=== PATIENT | female | born 1955 | race Caucasian/White ===

== ENCOUNTER 2016-10-07 12:56 | Observation (INO) | payer BC ==
--- NOTE | 2016-10-07 13:04 | DR.GENAD ---
HPI - Complaint/Symptoms Chief Complaint Doctors Comments: Patient presents with complaint of chest pain radiating to her back. She denies a history of cardiac disease. PMH - PMH Past Medical History: Hypertension, Hypothyroidism Past Surgical History: Yes Surgical History: - Family History Family Medical History: Diabetes Mellitus, Hypertension - Social History Do you use any recreational Drugs:: No ROS - Review of Systems Eyes: No Symptoms Reported ENTM: No Symptoms Reported Respiratoy: No Symptoms Reported Cardiovascular: Chest Pain (radiating to back) Genitourinary: No Symptoms Reported Neurological: No Symptoms Reported Musculoskeletal: No Symptoms Reported Integumentary: No Symptoms Reported Hematologic/Lymphatic: No Symptoms Reported Endocrine: No Symptoms Reported Psychiatric: No Symptoms Reported All Other Systems: Reviewed and Negative PE - Vital Signs Vitals: Temperature 97.2 F Pulse Rate [Right Brachial] 75 Pulse Rate 82 Respiratory Rate 20 Blood Pressure [Right Arm] 130/32 Blood Pressure [Left Arm] 109/55 Blood Pressure 120/68 O2 Sat by Pulse Oximetry 100 - General Limitations: No Limitations General Appearance: Alert, In No Apparent Distress, Anxious - Head Head Exam: Normal Inspection, Atraumatic - Eyes Eye exam: Normal Appearance, PERRL, EOMI - ENT ENT Exam: Normal Exam External Ear Exam: Normal External Inspection TM/Canal Exam: Bilateral Normal Nose Exam: Normal Nose Exam Mouth Exam: Normal Inspection Throat Exam: Normal Inspection - Neck Neck Exam: Normal Inspection, Full ROM - Chest Chest Inspection: Normal Inspection - Respiratory Respiratory Exam: Normal Lung Sounds Bilat Respiratory Exam: Bilateral Clear to Auscultation - Cardiovascular Cardiovascular Exam: Regular Rate, Normal Rhythm - Abdominal Exam Abdominal Exam: Normal Inspection, Normal Bowel Sounds Abdominal Tenderness: negative: RUQ, RLQ, LUQ, LLQ, Epigastrium, Suprapubic, Diffuse, Mild, Moderate, Severe, Other - Extremities Extremities Exam: Normal Inspection, Full ROM - Back Back Exam: Normal Inspection, Full ROM - Neurologic Neurological Exam: Alert, Oriented X3, CN II-XII Intact - Psychiatric Psychiatric Exam: Normal Affect - Skin Skin Exam: Warm, Dry, Intact Course - Reevaluation 1st: Improved ROR - Labs Reviewed Result Diagrams: 10/07/16 13:05 10/07/16 13:05 Laboratory: WBC 5.1 X10^3/uL (3.6-10.0) 10/07/16 13:05 RBC 4.02 X10^6/uL (3.5-5.4) 10/07/16 13:05 Hgb 12.1 g/dL (12.0-16.0) 10/07/16 13:05 Hct 34.9 % (36.0-47.0) L 10/07/16 13:05 MCV 86.8 fL (80.0-100.0) 10/07/16 13:05 MCH 30.0 pg (27.0-34.0) 10/07/16 13:05 MCHC 34.6 g/dL (33.0-35.0) 10/07/16 13:05 RDW 13.3 % (11.6-16.5) 10/07/16 13:05 Plt Count 322 X10^3/uL (150.0-450.0) 10/07/16 13:05 MPV 6.8 fL (7.4-11.0) L 10/07/16 13:05 Neut % 41.3 % (42.0-75.0) L 10/07/16 13:05 Lymph % 45.2 % (21.0-51.0) 10/07/16 13:05 [place] % 10.1 % (0.0-13.0) 10/07/16 13:05 Eos % 2.5 % (0.9-2.9) 10/07/16 13:05 Baso % 0.9 % (0.2-1.0) 10/07/16 13:05 Neut # 2.1 x10^3/uL (2.2-4.8) L 10/07/16 13:05 Lymph # 2.3 X10^3/uL (1.3-2.9) 10/07/16 13:05 [place] # 0.5 x10^3/uL (0.3-0.8) 10/07/16 13:05 Eos # 0.1 x10^3/uL (0.0-0.2) 10/07/16 13:05 Baso # 0.0 X10^3/uL (0.0-0.1) 10/07/16 13:05 Absolute Nucleated RBC 0.0 /100WBC 10/07/16 13:05 D-Dimer 439 ng/mL (0-400) H* 10/07/16 13:05 Sample Site Rba 10/07/16 13:20 ABG pH 7.390 (7.35-7.45) 10/07/16 13:20 ABG pCO2 44.0 mmHg (35.0-45.0) 10/07/16 13:20 ABG pO2 85.0 mmHg (80.0-100.0) 10/07/16 13:20 ABG HCO3 26.6 mmol/L (22-26) H 10/07/16 13:20 ABG O2 Saturation 96.0 % (90-100) 10/07/16 13:20 ABG Base Excess 1.3 mmol/L (-2.0-2.0) 10/07/16 13:20 Fermín Test Na 10/07/16 13:20 A-a Gradient 10.0 mmHg 10/07/16 13:20 FiO2 21.000 10/07/16 13:20 Blood Gas Comments Edilberto well cs 10/07/16 13:20 Sodium 141 mmol/L (136-145) 10/07/16 13:05 Corrected Sodium 142 mmol/L (136-145) 10/07/16 13:05 Potassium 4.0 mmol/L (3.5-5.1) 10/07/16 13:05 Chloride 106 mmol/L (98-107) 10/07/16 13:05 Carbon Dioxide 28.3 mmol/L (21-32) 10/07/16 13:05 BUN 20 mg/dL (7-18) H 10/07/16 13:05 Creatinine 1.20 mg/dL (0.55-1.02) H 10/07/16 13:05 Est GFR (MDRD) Af Amer 59 (>60) 10/07/16 13:05 Est GFR (MDRD) Non-Af 49 (>60) L 10/07/16 13:05 Glucose 123 mg/dL (65-99) H 10/07/16 13:05 Calcium 8.8 mg/dL (8.5-10.1) 10/07/16 13:05 Corrected Calcium TNP 10/07/16 13:05 Phosphorus 3.9 mg/dL (2.6-4.7) 10/07/16 13:05 Magnesium 1.8 mg/dL (1.7-2.9) 10/07/16 13:05 Total Bilirubin 0.40 mg/dL (0.2-1.0) 10/07/16 13:05 AST 22 Units/L (15-37) 10/07/16 13:05 ALT 30 Units/L (12-78) 10/07/16 13:05 Alkaline Phosphatase 89 Units/L (46-116) 10/07/16 13:05 Creatine Kinase 92 Units/L (26-192) 10/07/16 13:05 CK-MB (CK-2) 1.3 ng/mL (0-4.0) 10/07/16 13:05 CK/CKMB % Calc 1.4 % (<4) 10/07/16 13:05 Troponin I < 0.02 ng/mL (0-1.5) 10/07/16 13:05 Total Protein 7.4 g/dL (6.4-8.2) 10/07/16 13:05 Albumin 3.4 g/dL (3.4-5.0) 10/07/16 13:05 Globulin 4.0 g/dL (2.5-4.5) 10/07/16 13:05 Albumin/Globulin Ratio 0.9 Ratio (1.1-2.1) L 10/07/16 13:05 Lipase 146 Units/L (73-393) 10/07/16 13:05 - XRAY XRAY Interpreted by: Radiologist (Chest: A stable large hiatal hernis is seen superimposed on the cardiac shilhouette. No pneumothorax or pleural effusion is noted. No pulmonary opacity is noted. There is a mild thoracidc scoliosis seen convex to the left. Degenerative changes are noted in the spine. No acute osseous abnormality is noted. Impression:Hypoventilated lungs, Stable large hiatal hernia.) - EKG Compared to prior EKG Dated: 04/06/16 (old inferior infarct noted) [place]: Normal Rhythm: NSR Block: None Hypertrophy: LAE - Diagnosis Discharge Problem: Hiatal hernia Chest pain Qualifiers: Chest pain type: unspecified Qualified Code(s): R07.9 - Chest pain, unspecified Osteoarthritis of thoracic spine Qualifiers: Spinal osteoarthritis complication: without myelopathy or radiculopathy Qualified Code(s): M47.814 - Spondylosis without myelopathy or radiculopathy, thoracic region - Discharge Plan Condition: Stable - Follow ups/Referrals Follow ups/Referrals: NFD,None [Primary Care Provider] - 3 days - Instructions
[2016-10-07 13:06] VITALS: BMI 41.9
[2016-10-07] MEDS: NS 1000 ML 1,000 ML IV SCH ×2 (13:15→21:02)
[2016-10-07 13:25] LABS: BASOPHILS % (AUTO) 0.9 % (0.2-1.0); EOSINOPHILS # (AUTO) 0.1 x10^3/uL (0.0-0.2); EOSINOPHILS % (AUTO) 2.5 % (0.9-2.9); HEMATOCRIT 34.9 % (36.0-47.0); HEMOGLOBIN 12.1 g/dL (12.0-16.0); LYMPHOCYTES # (AUTO) 2.3 X10^3/uL (1.3-2.9); LYMPHOCYTES % (AUTO) 45.2 % (21.0-51.0); MEAN CORPUSCULAR HGB CONC 34.6 g/dL (33.0-35.0); MEAN CORPUSCULAR VOLUME 86.8 fL (80.0-100.0); MEAN PLATELET VOLUME 6.8 fL (7.4-11.0); MONOCYTES # (AUTO) 0.5 x10^3/uL (0.3-0.8); MONOCYTES % (AUTO) 10.1 % (0.0-13.0); NEUTROPHILS # (AUTO) 2.1 x10^3/uL (2.2-4.8); NEUTROPHILS % (AUTO) 41.3 % (42.0-75.0); PLATELET COUNT 322 X10^3/uL (150.0-450.0); RED BLOOD COUNT 4.02 X10^6/uL (3.5-5.4); RED CELL DISTRIBUTION WIDTH 13.3 % (11.6-16.5); WHITE BLOOD COUNT 5.1 X10^3/uL (3.6-10.0)
[2016-10-07 13:29] LABS: ABG BASE EXCESS 1.3 mmol/L (-2.0-2.0); ABG HCO3 26.6 mmol/L (22-26)
[2016-10-07 13:38] LABS: BLOOD UREA NITROGEN 20 mg/dL (7-18); CALCIUM 8.8 mg/dL (8.5-10.1); CARBON DIOXIDE 28.3 mmol/L (21-32); CHLORIDE 106 mmol/L (98-107); COR NA(FOR HYPERGLY) 142 mmol/L (136-145); GLUCOSE 123 mg/dL (65-99); SODIUM 141 mmol/L (136-145); TROPONIN I < 0.02 ng/mL (0-1.5); eGFR BLACK RACES 59 (>60); eGFR NON BLACK RACES 49 (>60)
--- NOTE | 2016-10-07 13:39 | RAD ---
Examination: Chest x-ray. Clinical History: Chest pain. Technique: A single portable AP view of the chest was obtained. Comparison: 04/06/2016. Findings: The lungs are hypoventilated, precluding evaluation of the heart size. A stable large hiatal hernia is seen superimposed on the cardiac silhouette. No pneumothorax or pleural effusion is noted. No pulmonary opacity is noted. There is a mild thoracic scoliosis seen convex to the left. Degenerative changes are noted in the sp ine. No acute osseous abnormality is noted. Monitor leads are seen overlying the chest. Impression: 1. Hypoventilated lungs. 2. Stable large hiatal hernia. Reported By:
[2016-10-07 13:42] LABS: ALANINE AMINOTRANSFERASE 30 Units/L (12-78); ALBUMIN 3.4 g/dL (3.4-5.0); ALKALINE PHOSPHATASE 89 Units/L (46-116); ASPARTATE AMINO TRANSFERASE 22 Units/L (15-37); CKMB % 1.4 % (<4); CREATINE KINASE 92 Units/L (26-192); CREATINE KINASE MB 1.3 ng/mL (0-4.0); LIPASE 146 Units/L (73-393); MAGNESIUM 1.8 mg/dL (1.7-2.9); PHOSPHORUS 3.9 mg/dL (2.6-4.7); TOTAL PROTEIN 7.4 g/dL (6.4-8.2)
[2016-10-07 13:48] LABS: D DIMER 439 ng/mL (0-400)
[2016-10-07] MEDS ORDERED: ZOFRAN INJ 4 MG VIAL IVP PRN (14:35)
[2016-10-07] MEDS ORDERED: TYLENOL 325 MG TAB PO PRN (14:36)
[2016-10-07 15:28] LABS: CKMB % 0.8 % (<4); CREATINE KINASE 197 Units/L (26-192); CREATINE KINASE MB 1.5 ng/mL (0-4.0); TROPONIN I < 0.02 ng/mL (0-1.5)
[2016-10-07] MEDS: LOVENOX INJ 40 MG SYR SC SCH (21:02)
[2016-10-07 21:10] LABS: CKMB % 1.3 % (<4); CREATINE KINASE 80 Units/L (26-192); TROPONIN I < 0.02 ng/mL (0-1.5)
[2016-10-08 03:02] LABS: BASOPHILS # (AUTO) 0.1 X10^3/uL (0.0-0.1); BASOPHILS % (AUTO) 1.1 % (0.2-1.0); EOSINOPHILS # (AUTO) 0.1 x10^3/uL (0.0-0.2); EOSINOPHILS % (AUTO) 2.6 % (0.9-2.9); HEMATOCRIT 31.4 % (36.0-47.0); HEMOGLOBIN 10.9 g/dL (12.0-16.0); LYMPHOCYTES # (AUTO) 2.4 X10^3/uL (1.3-2.9); LYMPHOCYTES % (AUTO) 49.7 % (21.0-51.0); MEAN CORPUSCULAR HGB CONC 34.6 g/dL (33.0-35.0); MEAN CORPUSCULAR VOLUME 86.8 fL (80.0-100.0); MONOCYTES # (AUTO) 0.5 x10^3/uL (0.3-0.8); MONOCYTES % (AUTO) 10.1 % (0.0-13.0); NEUTROPHILS # (AUTO) 1.8 x10^3/uL (2.2-4.8); NEUTROPHILS % (AUTO) 36.5 % (42.0-75.0); PLATELET COUNT 279 X10^3/uL (150.0-450.0); RED BLOOD COUNT 3.62 X10^6/uL (3.5-5.4); RED CELL DISTRIBUTION WIDTH 13.3 % (11.6-16.5); WHITE BLOOD COUNT 4.9 X10^3/uL (3.6-10.0)
[2016-10-08 03:15] LABS: ALANINE AMINOTRANSFERASE 25 Units/L (12-78); ALBUMIN 2.8 g/dL (3.4-5.0); ALKALINE PHOSPHATASE 71 Units/L (46-116); ASPARTATE AMINO TRANSFERASE 17 Units/L (15-37); BLOOD UREA NITROGEN 20 mg/dL (7-18); CALCIUM 8.2 mg/dL (8.5-10.1); CARBON DIOXIDE 27.8 mmol/L (21-32); CHLORIDE 109 mmol/L (98-107); CHOLESTEROL 145 mg/dL (0-200); COR CA(FOR HYPOALB) 9.2 mg/dL (8.5-10.1); CREATININE 1.03 mg/dL (0.55-1.02); GLUCOSE 92 mg/dL (65-99); HDL CHOLESTEROL 36 mg/dL (40-60); SODIUM 143 mmol/L (136-145); TOTAL PROTEIN 6.3 g/dL (6.4-8.2); TRIGLYCERIDES 116 mg/dL (0-150); eGFR BLACK RACES > 60 (>60); eGFR NON BLACK RACES 58 (>60)
[2016-10-08 03:21] LABS: CKMB % 1.6 % (<4); CREATINE KINASE 64 Units/L (26-192); CREATINE KINASE MB < 1.0 ng/mL (0-4.0); TROPONIN I < 0.02 ng/mL (0-1.5)
[2016-10-08] MEDS: NS 1000 ML 1,000 ML IV SCH (05:02)
[2016-10-08 08:00] VITALS: BP 116/56
[2016-10-08] MEDS: LOVENOX INJ 40 MG SYR SC SCH (08:17)
[2016-10-08] MEDS ORDERED: COZAAR PO SCH (09:00)
[2016-10-08] MEDS ORDERED: PATIENT'S HOME MEDICATION (Losartan Potassium [Losartan Potassium] 100 MG) PO SCH (09:00)
--- NOTE | 2016-10-08 14:36 | DR.CARTERS ---
Short Stay Summary - Short Stay Summary for: Short Stay Summary for Date of:: 10/08/16 - Admission Date Date of Admission: 10/07/16 - Discharge Date Discharge Date: 10/08/16 - Admission Diagnoses (1) GERD (gastroesophageal reflux disease) Status: Acute (2) Chest pain Status: Acute (3) Hiatal hernia Status: Acute - Hospital Course Hospital Course: Patient is a 60yo white female who presented to the ER with complaints of chest pain radiating to her back. Patient has a history of hypertension and hypothyroidism. Chest xray was performed on arrival and showed hypoventilated lungs and stable hiatal hernia. Labs on arrival within normal limits with the exception of hct 34.9, MPV, Neut% 41.3, Neut# 2.1, D-Dimer 439, BUN 20, Creatinine 1.20, Est GFR 49, Glucose 123. Albumin/Globulin Ratio 0.9. Patient admitted started on NS@125ml/hr, Lovenox 40mg SQ BID for DVT Prophylaxis, and home medications were reusmed. Serial cardiac enzymes and EKG were performed all of which were normal. Labs on discharge within normal limits with the exception of Hgb 10.9, Hct 31.4, MPV 7.0, Neut% 36.5, Baso% 1.1, Neut# 1.8, , Chloride 109, BUN 20, Creatinine 1.03, Est GFR 58, Calcium 8.2, Total Protein 6.3, Albumin 2.8, Albumin/Globulin 0.8, HDL Cholesterol. Patient complained of heartburn. Patient is being discharge home in stable condition and will follow up in 1 week. Patient will be started on protonix 40mg PO BID. - Discharge Medications Discharge Medications: Amitriptyline HCl 1 tab PO HS 10/07/16 [History] Gabapentin [NEURONTIN TAB 600 MG *] 1 tab PO HS 10/07/16 [History] Hydrocodone-Acet 10/325 mg [NORCO 10 MG/325 MG *] 1 tab PO QID PRN 10/07/16 [ History] Losartan Potassium & Hydrochlo [Hyzaar 100-25 mg] 1 tab PO DAILY 10/07/16 [ History] Pantoprazole Sodium 40 mg [Protonix Tab 40 mg] 40 mg PO BID #60 tab 10/08/16 [Rx ] - Discharge Plan Disposition: 01 HOME, SELF-CARE Condition: Stable Prescriptions: Pantoprazole Sodium 40 mg [Protonix Tab 40 mg] 40 mg PO BID #60 tab - Follow up/Referrals Follow up/Referrals: Kevan Arthur [STAFF PHYSICIAN] - 10/15/16 11:40 am - Instructions Instructions: Osteoarthritis, Hiatal Hernia, Hypertension, [id number], Pantoprazole tablets, Chest Pain Observation Forms: Patient Portal
== END 2016-10-08 10:35 | disposition home or self-care (01) ==
LOC: ER 13:07 → MED/SURG 14:29
PROVIDERS: ADMIT Obstetrics & Gynecology Obstetrics; ATTEND Internal Medicine
DX: R07.89 Other chest pain (principal); K21.9 Gastro-esophageal reflux disease without esophagitis; K44.9 Diaphragmatic hernia without obstruction or gangrene; M47.814 Spondylosis without myelopathy or radiculopathy, thoracic region; E03.8 Other specified hypothyroidism; I10 Essential (primary) hypertension
CPT/HCPCS: 36415; 36600; 71010; 80053; 80061; 82550; 82553; 82803; 83690; 83735; 84100; 84484; 85025; 85378; 93005; 94760; 99284; A4216; A4222; G0378; J1650

== ENCOUNTER 2016-10-26 10:45 | Observation (INO) | payer BC ==
--- NOTE | 2016-10-26 11:06 | DR.GENAD ---
HPI - PCP Primary Care Physician: KAYCE - HPI Comment HPI Comment: LEFT UPPER BACK PAIN, CHEST PAIN AND LEFT UPPER ABDOMINAL PAIN WITH NAUSEA AND VOMITING TIMES SEVERAL HOURS. RECENTLY FOUND LARGE HIATAL HERNIA AND IS ON PROTONIX. PAIN TODAY SEVER AND PERSISTENT. NO FEVER. - Complaint/Symptoms Chief Complaint Doctors Comments: N/V BACK. CHEST AND ABDOMINAL PAIN TIME SEVERAL HOURS. Chief Complaint:: PT. C/O LEFT SIDED BACK PAIN UNDERNEATH BRA STRAP WELL N /V. - Nurses notes reviewed Nurses Notes Review: Yes - Source History Provided: Patient - Mode of Arrival Mode of Arrival: Ambulatory - Timing Onset of Chief Complaint: 10/26/16 Came on: Suddenly - Duration Duration: Constant Duration: Hours - Severity Severity: Severe PMH - PMH Past Medical History: Yes Past Medical History: Hypertension, Hypothyroidism Past Medical History Comment: HIATAL HERNIA Past Surgical History: Yes Surgical History: Cholecystectomy, Joint Replacement, Other - Family History History of Family Medical Conditions: Yes Family Medical History: Diabetes Mellitus, Hypertension - Social History Does patient currently use any type of tobacco product: No Have you used tobacco products in the last 12 months: No Type of Tobacco Use: None Does any household member use tobacco: No Alcohol Use: None Do you use any recreational Drugs:: No Lives With: Alone Lives Where: Home - infectious screening In the last 2 months have you had wt loss of >10#?: NO Have you had fever, night sweats or hemotysis?: No Have you traveled outside the country in the last 6 months?: No Isolation: Standard ROS - Review of Systems Constitutional: Weakness, Fatigue, Loss of Appetite. negative: Chills, Fever Eyes: No Symptoms Reported, Eye Pain, Discharge ENTM: No Symptoms Reported. negative: Ear Pain, Nose Discharge, Nose Congestion , Throat Pain Respiratoy: No Symptoms Reported. negative: Productive Cough, Non-Productive Cough Cardiovascular: Chest Pain Gastrointestinal/Abdominal: Abdominal Pain, Nausea, Vomiting. negative: Constipation, Diarrhea Genitourinary: No Symptoms Reported. negative: Dysuria, Frequency, Hematuria Neurological: No Symptoms Reported Musculoskeletal: Back Pain, Muscle Pain, Back Integumentary: No Symptoms Reported Hematologic/Lymphatic: No Symptoms Reported Endocrine: No Symptoms Reported All Other Systems: Reviewed and Negative PE - Vital Signs Vitals: Temperature 97.9 F Pulse Rate 82 Respiratory Rate 20 Blood Pressure [Right Arm] 120/76 Blood Pressure [Left Arm] 116/56 Blood Pressure 169/123 O2 Sat by Pulse Oximetry 100 - General Limitations: No Limitations General Appearance: Alert - Head Head Exam: Normal Inspection - Eyes Eye exam: Normal Appearance - ENT ENT Exam: Normal External Ear Exam External Ear Exam: Normal External Inspection TM/Canal Exam: Bilateral Normal Nose Exam: Normal Nose Exam Mouth Exam: Normal Inspection Throat Exam: Normal Inspection - Neck Neck Exam: Trachea Midline - Chest Chest Inspection: Symmetric Chest Wall Rise - Respiratory Respiratory Exam: Normal Lung Sounds Bilat Respiratory Exam: Bilateral Clear to Auscultation - Cardiovascular Cardiovascular Exam: Regular Rate, Normal Rhythm, Normal Heart Sounds - Abdominal Exam Abdominal Exam: Normal Bowel Sounds, Soft, Tenderness - Extremities Extremities Exam: Normal Inspection - Back Back Exam: Tenderness, Paraspinal Tenderness - Neurologic Neurological Exam: Alert, Oriented X3 - Psychiatric Psychiatric Exam: Normal Affect, Normal Mood - Skin Skin Exam: Normal Color MDM - Additional Information Additional Information Obtained From: Family - Differential Diagnosis Differential Diagnosis: PUD, HIATAL HERNIA, PANCREATITIS, GASTRITIS, ID, KIDNEY STONE, UTI Course - Treatment Treatment: SEE ORDERS. IVMED FOR PAIN AND NAUSEA AND PEPCID IX, PATIENT SAID PAIN SLIGHTLY DICREASE. STILL BAD. - Reevaluation 1st: Improved - Consultation Consultation Comments: DISCUSS PATIENT WITH DR. DEVRIES. HE WILL ADMIT PATIENT. - Education/Counseling Education/Counseling: Patient, Education Educated On: Treatment, Diagnosis, Needs for Follow Up ROR - Labs Reviewed Laboratory Results Reviewed?: Yes Result Diagrams: 10/27/16 03:25 10/27/16 03:25 Laboratory: WBC 5.3 X10^3/uL (3.6-10.0) 10/26/16 11:25 RBC 4.17 X10^6/uL (3.5-5.4) 10/26/16 11:25 Hgb 12.4 g/dL (12.0-16.0) 10/26/16 11:25 Hct 36.8 % (36.0-47.0) 10/26/16 11:25 MCV 88.1 fL (80.0-100.0) 10/26/16 11:25 MCH 29.8 pg (27.0-34.0) 10/26/16 11:25 MCHC 33.8 g/dL (33.0-35.0) 10/26/16 11:25 RDW 13.4 % (11.6-16.5) 10/26/16 11:25 Plt Count 313 X10^3/uL (150.0-450.0) 10/26/16 11:25 MPV 7.0 fL (7.4-11.0) L 10/26/16 11:25 Neut % 58.7 % (42.0-75.0) 10/26/16 11:25 Lymph % 30.7 % (21.0-51.0) 10/26/16 11:25 [place] % 7.7 % (0.0-13.0) 10/26/16 11:25 Eos % 1.9 % (0.9-2.9) 10/26/16 11:25 Baso % 1.0 % (0.2-1.0) 10/26/16 11:25 Neut # 3.1 x10^3/uL (2.2-4.8) 10/26/16 11:25 Lymph # 1.6 X10^3/uL (1.3-2.9) 10/26/16 11:25 [place] # 0.4 x10^3/uL (0.3-0.8) 10/26/16 11:25 Eos # 0.1 x10^3/uL (0.0-0.2) 10/26/16 11:25 Baso # 0.1 X10^3/uL (0.0-0.1) 10/26/16 11:25 Absolute Nucleated RBC 0.0 /100WBC 10/26/16 11:25 Sodium 141 mmol/L (136-145) 10/26/16 11:25 Corrected Sodium TNP 10/26/16 11:25 Potassium 4.4 mmol/L (3.5-5.1) 10/26/16 11:25 Chloride 105 mmol/L (98-107) 10/26/16 11:25 Carbon Dioxide 27.5 mmol/L (21-32) 10/26/16 11:25 BUN 18 mg/dL (7-18) 10/26/16 11:25 Creatinine 1.28 mg/dL (0.55-1.02) H 10/26/16 11:25 Est GFR (MDRD) Af Amer 55 (>60) L 10/26/16 11:25 Est GFR (MDRD) Non-Af 45 (>60) L 10/26/16 11:25 Glucose 92 mg/dL (65-99) 10/26/16 11:25 Calcium 8.5 mg/dL (8.5-10.1) 10/26/16 11:25 Corrected Calcium TNP 10/26/16 11:25 Total Bilirubin 0.50 mg/dL (0.2-1.0) 10/26/16 11:25 AST 25 Units/L (15-37) 10/26/16 11:25 ALT 30 Units/L (12-78) 10/26/16 11:25 Alkaline Phosphatase 84 Units/L (46-116) 10/26/16 11:25 Creatine Kinase 84 Units/L (26-192) 10/26/16 11:25 CK-MB (CK-2) 1.5 ng/mL (0-4.0) 10/26/16 11:25 CK/CKMB % Calc 1.8 % (<4) 10/26/16 11:25 Troponin I < 0.02 ng/mL (0-1.5) 10/26/16 11:25 Total Protein 7.6 g/dL (6.4-8.2) 10/26/16 11:25 Albumin 3.7 g/dL (3.4-5.0) 10/26/16 11:25 Globulin 3.9 g/dL (2.5-4.5) 10/26/16 11:25 Albumin/Globulin Ratio 0.9 Ratio (1.1-2.1) L 10/26/16 11:25 Amylase 34 Units/L (25-115) 10/26/16 11:25 Lipase 110 Units/L (73-393) 10/26/16 11:25 Specimen Type Clean catch urine 10/26/16 11:40 Urine Color Yellow (YELLOW) 10/26/16 11:40 Urine Appearance Slightly hazy (CLEAR) 10/26/16 11:40 Urine pH 7.0 (5.0 - 8.0) 10/26/16 11:40 Ur Specific [place] 1.005 (1.000-1.030) 10/26/16 11:40 Urine Protein Negative (NEGATIVE) 10/26/16 11:40 Urine Glucose (UA) Negative (NEGATIVE) 10/26/16 11:40 Urine Ketones Negative (NEGATIVE) 10/26/16 11:40 Urine Occult Blood 1+ (NEGATIVE) 10/26/16 11:40 Urine Nitrite Negative (NEGATIVE) 10/26/16 11:40 Urine Bilirubin Negative (NEGATIVE) 10/26/16 11:40 Urine Urobilinogen Normal (NORMAL) 10/26/16 11:40 Ur Leukocyte Esterase 2+ (NEGATIVE) 10/26/16 11:40 Urine RBC 0-3 /HPF (NEGATIVE) 10/26/16 11:40 Urine WBC 2-5 /HPF (NEGATIVE) 10/26/16 11:40 Ur Squamous Epith Cells Moderate /HPF (NEGATIVE) 10/26/16 11:40 Urine Bacteria Trace /HPF (NEGATIVE) 10/26/16 11:40 Ur Culture Indicated? No/not indicated 10/26/16 11:40 - XRAY XRAY Interpreted by: Radiologist XRAY Findings: REPORT DISCUSS WITH PATIENT. - EKG Rhythm: NSR (EKG NOTED.) - Diagnosis Discharge Problem: Abdominal pain, Back pain - Discharge Plan Disposition: ADMITTED INPATIENT Condition: Stable - Follow ups/Referrals - Instructions
[2016-10-26] MEDS ORDERED: PEPCID 20 MG IV PREMIX* 20 MG/50 ML BAG IV ONE ×2 (11:09→11:41)
[2016-10-26] MEDS ORDERED: ZOFRAN INJ 4 MG VIAL IVP ONE ×2 (11:09→16:13)
[2016-10-26] MEDS ORDERED: MORPHINE SULFATE INJ 4 MG IVP ONE (11:11)
[2016-10-26] MEDS ORDERED: MORPHINE SULFATE INJ 4 MG ONE (11:41)
[2016-10-26] MEDS ORDERED: ZOFRAN INJ 4 MG VIAL ONE (11:41)
[2016-10-26 11:51] LABS: BASOPHILS # (AUTO) 0.1 X10^3/uL (0.0-0.1); EOSINOPHILS # (AUTO) 0.1 x10^3/uL (0.0-0.2); EOSINOPHILS % (AUTO) 1.9 % (0.9-2.9); HEMATOCRIT 36.8 % (36.0-47.0); HEMOGLOBIN 12.4 g/dL (12.0-16.0); LYMPHOCYTES # (AUTO) 1.6 X10^3/uL (1.3-2.9); LYMPHOCYTES % (AUTO) 30.7 % (21.0-51.0); MEAN CORPUSCULAR HEMOGLOBIN 29.8 pg (27.0-34.0); MEAN CORPUSCULAR HGB CONC 33.8 g/dL (33.0-35.0); MEAN CORPUSCULAR VOLUME 88.1 fL (80.0-100.0); MONOCYTES # (AUTO) 0.4 x10^3/uL (0.3-0.8); MONOCYTES % (AUTO) 7.7 % (0.0-13.0); NEUTROPHILS # (AUTO) 3.1 x10^3/uL (2.2-4.8); NEUTROPHILS % (AUTO) 58.7 % (42.0-75.0); PLATELET COUNT 313 X10^3/uL (150.0-450.0); RED BLOOD COUNT 4.17 X10^6/uL (3.5-5.4); RED CELL DISTRIBUTION WIDTH 13.4 % (11.6-16.5); WHITE BLOOD COUNT 5.3 X10^3/uL (3.6-10.0)
[2016-10-26 11:53] LABS: BILIRUBIN,URINE NEGATIVE (NEGATIVE); BLOOD/HEMOGLOBIN,URINE 1+ (NEGATIVE); GLUCOSE, URINE NEGATIVE (NEGATIVE); KETONES,URINE NEGATIVE (NEGATIVE); LEUKOCYTE ESTERASE ,URINE 2+ (NEGATIVE); NITRITES,URINE NEGATIVE (NEGATIVE); PROTEIN,URINE NEGATIVE (NEGATIVE); UROBILINOGEN,URINE NORMAL (NORMAL)
[2016-10-26 12:09] LABS: BLOOD UREA NITROGEN 18 mg/dL (7-18); CALCIUM 8.5 mg/dL (8.5-10.1); CARBON DIOXIDE 27.5 mmol/L (21-32); CHLORIDE 105 mmol/L (98-107); CREATININE 1.28 mg/dL (0.55-1.02); GLUCOSE 92 mg/dL (65-99); SODIUM 141 mmol/L (136-145); TROPONIN I < 0.02 ng/mL (0-1.5); eGFR BLACK RACES 55 (>60); eGFR NON BLACK RACES 45 (>60)
[2016-10-26 12:12] LABS: ALANINE AMINOTRANSFERASE 30 Units/L (12-78); ALBUMIN 3.7 g/dL (3.4-5.0); ALKALINE PHOSPHATASE 84 Units/L (46-116); AMYLASE 34 Units/L (25-115); ASPARTATE AMINO TRANSFERASE 25 Units/L (15-37); CKMB % 1.8 % (<4); CREATINE KINASE 84 Units/L (26-192); CREATINE KINASE MB 1.5 ng/mL (0-4.0); LIPASE 110 Units/L (73-393); TOTAL PROTEIN 7.6 g/dL (6.4-8.2)
[2016-10-26 12:18] LABS: APPEARANCE,URINE SLIGHTLY HAZY (CLEAR); BACTERIA,URINE TRACE /HPF (NEGATIVE); COLOR,URINE YELLOW (YELLOW); RBC,URINE 0-3 /HPF (NEGATIVE); SQUAMOUS EPITHELIAL CELL,UR MODERATE /HPF (NEGATIVE)
[2016-10-26] MEDS ORDERED: LEVSIN/MAALOX/LIDOC VISC PO ONE (12:45)
--- NOTE | 2016-10-26 14:19 | CT ---
HISTORY: Abdominal pain. Study: CT abdomen and pelvis without contrast Comparison: None. Technique: Multiple axial images of the abdomen and pelvis were obtained from the lung bases to the pubic symph ysis without the administration of IV contrast. Dose reduction techniques including Automated Expos ure Control (AEC) and adjustment of mA and kV were utilized. Findings: The visualized portions of the lung bases are unremarkable. Large hiatal hernia containing the major ity of the stomach. 2.2 cm right inferior renal pole simple appearing cyst. The liver, spleen, pancr eas, left kidney, and adrenal glands are unremarkable in their CT appearance. The gallbladder is justus gically absent. No significant mesenteric lymphadenopathy or stranding can be observed. No free fl uid or free air is seen within the abdomen. Limited evaluation of the bowel secondary to the lack o f oral contrast. Scattered colonic diverticulum without evidence of diverticulitis. The bowel otherw ise appears normal. The uterus and ovaries appear normal. The urinary bladder is grossly unremarkabl e. Degenerative changes of the spine. The osseous structures otherwise appear normal for age. IMPRESSION: 1. No CT evidence of acute abdominal/pelvic pathology. 2. Other chronic findings as above. Reported By:
[2016-10-26] MEDS ORDERED: LEVSIN/MAALOX/LIDOC VISC PO PRN (16:07)
[2016-10-26] MEDS: PROTONIX INJ 40 MG VIAL 80 MG in NS 100 ML IV 80 ML IV SCH (17:35)
[2016-10-26] MEDS: NS 1000 ML 1,000 ML IV SCH (17:35)
[2016-10-27] MEDS ORDERED: AMBIEN PO PRN (00:12)
[2016-10-27] MEDS: PROTONIX INJ 40 MG VIAL 80 MG in NS 100 ML IV 80 ML IV SCH (02:36)
[2016-10-27 04:52] LABS: BASOPHILS % (AUTO) 1.1 % (0.2-1.0); EOSINOPHILS # (AUTO) 0.2 x10^3/uL (0.0-0.2); EOSINOPHILS % (AUTO) 3.5 % (0.9-2.9); HEMATOCRIT 32.4 % (36.0-47.0); HEMOGLOBIN 11.4 g/dL (12.0-16.0); LYMPHOCYTES # (AUTO) 1.8 X10^3/uL (1.3-2.9); LYMPHOCYTES % (AUTO) 42.3 % (21.0-51.0); MEAN CORPUSCULAR HEMOGLOBIN 30.7 pg (27.0-34.0); MEAN CORPUSCULAR HGB CONC 35.2 g/dL (33.0-35.0); MEAN CORPUSCULAR VOLUME 87.4 fL (80.0-100.0); MEAN PLATELET VOLUME 7.2 fL (7.4-11.0); MONOCYTES # (AUTO) 0.4 x10^3/uL (0.3-0.8); MONOCYTES % (AUTO) 8.2 % (0.0-13.0); NEUTROPHILS # (AUTO) 1.9 x10^3/uL (2.2-4.8); NEUTROPHILS % (AUTO) 44.9 % (42.0-75.0); PLATELET COUNT 268 X10^3/uL (150.0-450.0); RED BLOOD COUNT 3.71 X10^6/uL (3.5-5.4); RED CELL DISTRIBUTION WIDTH 13.1 % (11.6-16.5); WHITE BLOOD COUNT 4.3 X10^3/uL (3.6-10.0)
[2016-10-27 05:22] LABS: ALANINE AMINOTRANSFERASE 40 Units/L (12-78); ALBUMIN 3.1 g/dL (3.4-5.0); ALKALINE PHOSPHATASE 76 Units/L (46-116); ASPARTATE AMINO TRANSFERASE 36 Units/L (15-37); BLOOD UREA NITROGEN 17 mg/dL (7-18); CHLORIDE 106 mmol/L (98-107); COR CA(FOR HYPOALB) 8.7 mg/dL (8.5-10.1); CREATININE 1.27 mg/dL (0.55-1.02); GLUCOSE 90 mg/dL (65-99); SODIUM 141 mmol/L (136-145); TOTAL PROTEIN 6.5 g/dL (6.4-8.2); eGFR BLACK RACES 55 (>60); eGFR NON BLACK RACES 46 (>60)
[2016-10-27] MEDS: NS 1000 ML 1,000 ML IV SCH (06:06)
[2016-10-27] MEDS ORDERED: NORCO 10/325 TAB PO PRN (09:51)
[2016-10-27] MEDS ORDERED: PATIENT'S HOME MEDICATION (Losartan/Hydrochlorothiazide [Hyzaar 100-25 Tablet] 1 TAB) PO SCH (10:00)
[2016-10-27] MEDS: SYNTHROID 175 mcg TAB PO SCH (10:56)
[2016-10-27] MEDS: NexIUM PO SCH ×3 (10:56→21:22)
[2016-10-27] MEDS: ZANTAC PO SCH ×2 (10:56→21:22)
--- NOTE | 2016-10-27 17:17 | DR.H&P ---
H&P - History & Physical for Day of: H&P Date: 10/26/16 - Chief Complaint Chief Complaint: chest, abdomen and back pain - Allergies Allergies/Adverse Reactions: Allergies Allergy/AdvReac Type Severity Reaction Status Date / Time tramadol Allergy Intermediate NAUSEA Verified 10/26/16 16:33 - History of Present Illness History of Present Illness: Patient is a 61yo female who presented to the emergency room with complaints of nausea, vomiting and back pain. Patient is also reporting abdominal pain for several hours. Patient is reporting left upper back pain. Patient reports that she has recently found out that she has a large hiatal hernia and is currently prescribed Protonix. Patient reports that pain is worse today and persistent. Associated symptoms weakness, fatigue, chest pain, back pain and muscle pain. Patient given IV pain and nausea medications in the emergency room, as well as IV Pepcid. Patient reports that pain has slightly decreased since pain medications. Patient has a history of hypertension, hypothyroidism, hiatal hernia, cholecystectomy, joint replacement. Vital signs on arrival 97.9, 82, 20, 100%RA, 169/123, Labs on arrival within normal limits with the exception of MPV 7.0, Creatinine 1.28, GFR (AA) 55, GFR(non) 45, A/G Ratio 0.9. Abdominal CT showed No CT evidence of acute abdominal/pelvic pathology and large hiatal hernia. Pateint admitted with diagnosis of Abdominal, chest and back pain and hiatal hernia and started on GI cocktail 30ml po Q4hour PRN indigestion, NS at 80mls/hr, Protonix drip at 10mls/ hr. - Past Medical History Past Medical History: GERD, Hypertension, Hypothyroidism Additional Medical History: Frequent UTI's, Hx Bronchitis - Past Surgical History Surgical History: Cholecystectomy, Joint Replacement, Other Additional Surgical History: Left Knee Arthroscopy - Family History Family Medical History: Diabetes Mellitus, Hypertension - Social History Does patient currently use any type of tobacco product: No Have you used tobacco products in the last 12 months: No Type of Tobacco Use: None Does any household member use tobacco: No Alcohol Use: None Drug Use: None - Medications Home Medications: Zolpidem Tartrate [AMBIEN 10 MG *] 1 tab PO HS 10/26/16 [History Confirmed 10/26] - Review of Systems Constitutional: No Symptoms Reported Eyes: No Symptoms Reported ENT: No Symptoms Reported Respiratory: No Symptoms Reported Cardiovascular: Chest Pain Gastrointestinal: Nausea, Vomiting, Abdominal Pain Genitourinary: No Symptoms Reported Musculoskeletal: Back Pain Skin: No Symptoms Reported Neurological: No Symptoms Reported - Physical Exam Vital Signs: 97.9, 82, 20, 100%RA, 169/123 Oriented: Normal Eyes: Normal Ear: Normal Nose: Normal Throat: Normal Respiratory: Clear Throughout Cardiovascular: Normal : Normal Auscultation: Bowel Sounds: Normal Palpation: Normal Tenderness: Diffuse Skin: Normal Musculoskeletal: Normal Psychiatric: Normal Mood Description: Calm, Appropriate Affect: Normal Speech Pattern: Clear, Appropriate - Assessment/Plan (1) Abdominal pain Qualifiers: Abdominal location: A Status: Acute Plan: protonix drip, GI Cocktail (2) Back pain Qualifiers: Back pain location: B Chronicity: C Back pain laterality: B Sciatica presence: S Sciatica laterality: S Status: Acute Plan: monitor (3) Chest pain Qualifiers: Chest pain type: C Ischemic chest pain type: I Status: Acute Plan: nitroglycerin prn (4) GERD (gastroesophageal reflux disease) Qualifiers: Esophagitis presence: E Status: Acute Plan: protonix drip
--- NOTE | 2016-10-27 17:21 | PCM.PROG ---
Progress Note - Progress Note for Day of Date: 10/27/16 - Subjective Subjective: Patient is a 61yo female who was admitted with Abdominal, chest and back pain and hiatal hernia. This am patient shows us that her pain is in her thoracic are of her back along with her abdomen. We are going to order a thoracic MRI to rule out any thoracic abnormalities that could be causing this pain. Patient also stated that her insurance would only pay for 30 protonix so she could not take it BID we are going to discontinue the protonix drip and start her on Nexium 40mg BID and Zantac 150mg BID. And discontinue her home medication of Mobic. We will resume her home medications of Ambien 10mg at bedtime, [place] 10/325mg QID PRN, Neurontin 600mg at bedtime, hyzaar 100/25 daily , levothyroxine sodium 175mcg daily. Vital signs this am 98.0, 70, 20, 97%, 127/ 60. Labs are within normal limits with the exception of Hgb 11.4, Hct 32.4, MCHC 35.2, MPV 7.2, EOS% 3.5, Baso% 1.1, Neut# 1.9, Creatinine 1.27, Est GFR 46 , Clacium 8.0, albumin 3.1, albumin/globulin ratio 0.9. We will follow with patient in the am with repeat labs - Past Medical Family Social History Past Med/Fam/Surg Hx: No changes since H&P Allergies: Allergies tramadol Allergy (Intermediate, Verified 10/26/16 16:33) NAUSEA - Review of Systems ROS: No change since H&P - Vital Signs and I&O's Vital Signs: 98.0, 70, 20, 97%, 127/60. Intake and Output: Intake & Output 10/25/16 10/26/16 10/27/16 10/28/16 11:59 11:59 11:59 11:59 Intake Total 240 600 Balance 240 600 - Physical Exam Oriented: Normal Eyes: Normal Ear: Normal Nose: Normal Throat: Normal Respiratory: Normal Cardiovascular: Normal : Normal Auscultation: Bowel Sounds: Normal Palpation: Normal Tenderness: Diffuse Skin: Normal Musculoskeletal: Normal Psychiatric: Normal Mood Description: Calm, Appropriate Affect: Normal Speech Pattern: Clear, Appropriate - Laboratory and Diagnostics Result Diagrams: 10/27/16 03:25 06/27/17 03:25 Labs: Laboratory WBC 4.3 X10^3/uL (3.6-10.0) 10/27/16 03:25 RBC 3.71 X10^6/uL (3.5-5.4) 10/27/16 03:25 Hgb 11.4 g/dL (12.0-16.0) L 10/27/16 03:25 Hct 32.4 % (36.0-47.0) L 10/27/16 03:25 MCV 87.4 fL (80.0-100.0) 10/27/16 03:25 MCH 30.7 pg (27.0-34.0) 10/27/16 03:25 MCHC 35.2 g/dL (33.0-35.0) H 10/27/16 03:25 RDW 13.1 % (11.6-16.5) 10/27/16 03:25 Plt Count 268 X10^3/uL (150.0-450.0) 10/27/16 03:25 MPV 7.2 fL (7.4-11.0) L 10/27/16 03:25 Neut % 44.9 % (42.0-75.0) 10/27/16 03:25 Lymph % 42.3 % (21.0-51.0) 10/27/16 03:25 [place] % 8.2 % (0.0-13.0) 10/27/16 03:25 Eos % 3.5 % (0.9-2.9) H 10/27/16 03:25 Baso % 1.1 % (0.2-1.0) H 10/27/16 03:25 Neut # 1.9 x10^3/uL (2.2-4.8) L 10/27/16 03:25 Lymph # 1.8 X10^3/uL (1.3-2.9) 10/27/16 03:25 [place] # 0.4 x10^3/uL (0.3-0.8) 10/27/16 03:25 Eos # 0.2 x10^3/uL (0.0-0.2) 10/27/16 03:25 Baso # 0.0 X10^3/uL (0.0-0.1) 10/27/16 03:25 Absolute Nucleated RBC 0.0 /100WBC 10/27/16 03:25 Sodium 141 mmol/L (136-145) 10/27/16 03:25 Corrected Sodium TNP 10/27/16 03:25 Potassium 4.1 mmol/L (3.5-5.1) 10/27/16 03:25 Chloride 106 mmol/L (98-107) 10/27/16 03:25 Carbon Dioxide 25.0 mmol/L (21-32) 10/27/16 03:25 BUN 17 mg/dL (7-18) 10/27/16 03:25 Creatinine 1.27 mg/dL (0.55-1.02) H 10/27/16 03:25 Est GFR (MDRD) Af Amer 55 (>60) L 10/27/16 03:25 Est GFR (MDRD) Non-Af 46 (>60) L 10/27/16 03:25 Glucose 90 mg/dL (65-99) 10/27/16 03:25 Calcium 8.0 mg/dL (8.5-10.1) L 10/27/16 03:25 Corrected Calcium 8.7 mg/dL (8.5-10.1) 10/27/16 03:25 Total Bilirubin 0.40 mg/dL (0.2-1.0) 10/27/16 03:25 AST 36 Units/L (15-37) 10/27/16 03:25 ALT 40 Units/L (12-78) 10/27/16 03:25 Alkaline Phosphatase 76 Units/L (46-116) 10/27/16 03:25 Creatine Kinase 84 Units/L (26-192) 10/26/16 11:25 CK-MB (CK-2) 1.5 ng/mL (0-4.0) 10/26/16 11:25 CK/CKMB % Calc 1.8 % (<4) 10/26/16 11:25 Troponin I < 0.02 ng/mL (0-1.5) 10/26/16 11:25 Total Protein 6.5 g/dL (6.4-8.2) 10/27/16 03:25 Albumin 3.1 g/dL (3.4-5.0) L 10/27/16 03:25 Globulin 3.4 g/dL (2.5-4.5) 10/27/16 03:25 Albumin/Globulin Ratio 0.9 Ratio (1.1-2.1) L 10/27/16 03:25 Amylase 34 Units/L (25-115) 10/26/16 11:25 Lipase 110 Units/L (73-393) 10/26/16 11:25 Specimen Type Clean catch urine 10/26/16 11:40 Urine Color Yellow (YELLOW) 10/26/16 11:40 Urine Appearance Slightly hazy (CLEAR) 10/26/16 11:40 Urine pH 7.0 (5.0 - 8.0) 10/26/16 11:40 Ur Specific [place] 1.005 (1.000-1.030) 10/26/16 11:40 Urine Protein Negative (NEGATIVE) 10/26/16 11:40 Urine Glucose (UA) Negative (NEGATIVE) 10/26/16 11:40 Urine Ketones Negative (NEGATIVE) 10/26/16 11:40 Urine Occult Blood 1+ (NEGATIVE) 10/26/16 11:40 Urine Nitrite Negative (NEGATIVE) 10/26/16 11:40 Urine Bilirubin Negative (NEGATIVE) 10/26/16 11:40 Urine Urobilinogen Normal (NORMAL) 10/26/16 11:40 Ur Leukocyte Esterase 2+ (NEGATIVE) 10/26/16 11:40 Urine RBC 0-3 /HPF (NEGATIVE) 10/26/16 11:40 Urine WBC 2-5 /HPF (NEGATIVE) 10/26/16 11:40 Ur Squamous Epith Cells Moderate /HPF (NEGATIVE) 10/26/16 11:40 Urine Bacteria Trace /HPF (NEGATIVE) 10/26/16 11:40 Ur Culture Indicated? No/not indicated 10/26/16 11:40 Radiology Reviewed: Yes EKG Reviewed: Yes - Plan (1) Abdominal pain Status: Acute Qualifiers: Abdominal location: A Plan: GI Cocktail (2) Back pain Status: Acute Qualifiers: Back pain location: B Chronicity: C Back pain laterality: B Sciatica presence: S Sciatica laterality: S Plan: Thoracic MRI (3) Chest pain Status: Acute Qualifiers: Chest pain type: C Ischemic chest pain type: I Plan: nitroglycerin prn (4) GERD (gastroesophageal reflux disease) Status: Acute Qualifiers: Esophagitis presence: E Plan: Nexium 40mg BID, Zantac 150mg BID (5) Essential hypertension Status: Chronic Plan: continue hyzaar 100/25 daily (6) Hypothyroidism Status: Chronic Qualifiers: Hypothyroidism type: H Plan: continue levothyroxine sodium 175mcg daily
[2016-10-27] MEDS ORDERED: NEURONTIN TAB 600 MG PO SCH (21:00)
[2016-10-27] MEDS ORDERED: AMBIEN PO SCH (21:00)
[2016-10-27 21:24] VITALS: BMI 42.1
[2016-10-28] MEDS: NS 1000 ML 1,000 ML IV SCH (01:35)
[2016-10-28 04:44] LABS: EOSINOPHILS # (AUTO) 0.2 x10^3/uL (0.0-0.2); EOSINOPHILS % (AUTO) 3.2 % (0.9-2.9); HEMATOCRIT 33.4 % (36.0-47.0); HEMOGLOBIN 11.5 g/dL (12.0-16.0); LYMPHOCYTES # (AUTO) 2.3 X10^3/uL (1.3-2.9); LYMPHOCYTES % (AUTO) 47.3 % (21.0-51.0); MEAN CORPUSCULAR HEMOGLOBIN 30.3 pg (27.0-34.0); MEAN CORPUSCULAR HGB CONC 34.5 g/dL (33.0-35.0); MEAN CORPUSCULAR VOLUME 87.8 fL (80.0-100.0); MEAN PLATELET VOLUME 7.2 fL (7.4-11.0); MONOCYTES # (AUTO) 0.4 x10^3/uL (0.3-0.8); MONOCYTES % (AUTO) 7.9 % (0.0-13.0); NEUTROPHILS # (AUTO) 1.9 x10^3/uL (2.2-4.8); NEUTROPHILS % (AUTO) 40.6 % (42.0-75.0); PLATELET COUNT 284 X10^3/uL (150.0-450.0); RED BLOOD COUNT 3.81 X10^6/uL (3.5-5.4); RED CELL DISTRIBUTION WIDTH 13.4 % (11.6-16.5); WHITE BLOOD COUNT 4.8 X10^3/uL (3.6-10.0)
[2016-10-28 04:52] LABS: ALANINE AMINOTRANSFERASE 32 Units/L (12-78); ALKALINE PHOSPHATASE 77 Units/L (46-116); ASPARTATE AMINO TRANSFERASE 24 Units/L (15-37); BLOOD UREA NITROGEN 15 mg/dL (7-18); CALCIUM 8.2 mg/dL (8.5-10.1); CARBON DIOXIDE 26.7 mmol/L (21-32); CHLORIDE 107 mmol/L (98-107); CREATININE 1.06 mg/dL (0.55-1.02); GLUCOSE 83 mg/dL (65-99); SODIUM 141 mmol/L (136-145); TOTAL PROTEIN 6.6 g/dL (6.4-8.2); eGFR BLACK RACES > 60 (>60); eGFR NON BLACK RACES 56 (>60)
[2016-10-28 08:12] VITALS: BP 172/78
[2016-10-28] MEDS ORDERED: HYZAAR 50/12.5 MG PO SCH (09:00)
[2016-10-28] MEDS: ZANTAC PO SCH (09:17)
[2016-10-28] MEDS: NexIUM PO SCH (09:17)
[2016-10-28] MEDS: SYNTHROID 175 mcg TAB PO SCH (09:18)
--- NOTE | 2016-10-28 10:25 | DR.CARTERD ---
- Discharge Summary for: Discharge Summary for Date of:: 10/28/16 - Admission Date Date of Admission: 10/26/16 - Admission Diagnoses Admission Diagnosis: Abdominal pain, back pain, chest pain, hiatal hernia - Discharge Date Discharge Date: 10/28/16 - Discharge Diagnoses Discharge Diagnosis: Abdominal pain, back pain, chest pain, hiatal hernia, hypothyroidism, hypertension - Hospital Course Hospital Course: Patient is a 61yo female who presented to the emergency room with complaints of nausea, vomiting and back pain. Patient is also reporting abdominal pain for several hours. Patient is reporting left upper back pain. Patient reports that she has recently found out that she has a large hiatal hernia and is currently prescribed Protonix. Patient reports that pain is worse today and persistent. Associated symptoms weakness, fatigue, chest pain, back pain and muscle pain. Patient given IV pain and nausea medications in the emergency room, as well as IV Pepcid. Patient reports that pain has slightly decreased since pain medications. Patient has a history of hypertension, hypothyroidism, hiatal hernia, cholecystectomy, joint replacement. Vital signs on arrival 97.9, 82, 20 , 100%RA, 169/123, Labs on arrival within normal limits with the exception of MPV 7.0, Creatinine 1.28, GFR(AA) 55, GFR(non) 45, A/G Ratio 0.9. Abdominal CT showed No CT evidence of acute abdominal/pelvic pathology and large hiatal hernia. Pateint admitted with diagnosis of Abdominal, chest and back pain and hiatal hernia and started on GI cocktail 30ml po Q4hour PRN indigestion, NS at 80mls/hr, Protonix drip at 10mls/hr. Patient also stated that her insurance would only pay for 30 protonix so she could not take it BID we are going to discontinue the protonix drip and start her on Nexium 40mg BID and Zantac 150mg BID. And discontinue her home medication of Mobic. Patient is awake this am and is doing well she has no complaints at this time. Labs this am are within normal limits with the exception Hgb 11.5, Hct 33.4, MPV 7.2, Neut% 40.6, Eos% 3.2, Neut# 1.9, Creatinine 1.06, Est GFR 56, Calcium 8.2, Albumin 3.0, Albumin/ globulin Ratio 0.8. Thoracic MRI shows no significant neural foraminal narrowing or spinal canal stenosis. As everything has ruled out as negative and the patient is feeling better we are going to discharge her home in stable condition to follow up in 1 week and referral to software team leader. We are going to discontinue her protonix and mobic and she is to resume all other home medications with the addition of Nexium 40mg PO BID and zantac 150mg PO BID. Labs: Labs this am are within normal limits with the exception Hgb 11.5, Hct 33.4, MPV 7.2, Neut% 40.6, Eos% 3.2, Neut# 1.9, Creatinine 1.06, Est GFR 56, Calcium 8.2, Albumin 3.0, Albumin/globulin Ratio 0.8. - Discharge Medications Discharge Medications: Zolpidem Tartrate [AMBIEN 10 MG *] 1 tab PO HS 10/26/16 [History] Esomeprazole Magnesium [NEXIUM 40 MG *] 40 mg PO BID #60 cap 10/28/16 [Rx] Ranitidine HCl [ZANTAC TAB 150 MG *] 150 mg PO BID #60 tab 10/28/16 [Rx] - Discharge Disposition Discharge Disposition: Home follow up in 1 week and referral to software team leader
== END 2016-10-28 12:15 | disposition home or self-care (01) | DRG 392 ==
LOC: ER 10:52 → MED/SURG 15:55
PROVIDERS: ADMIT Internal Medicine; ATTEND Internal Medicine
DX: R10.12 Left upper quadrant pain (principal); R07.89 Other chest pain; M54.89 Other dorsalgia; K46.9 Unspecified abdominal hernia without obstruction or gangrene; R11.2 Nausea with vomiting, unspecified; I10 Essential (primary) hypertension; E03.8 Other specified hypothyroidism; R53.1 Weakness; R53.83 Other fatigue; K21.9 Gastro-esophageal reflux disease without esophagitis; Z87.440 Personal history of urinary (tract) infections; R94.4 Abnormal results of kidney function studies; Z79.899 Other long term (current) drug therapy
CPT/HCPCS: 36415; 72146; 74176; 80053; 81001; 82150; 82550; 82553; 83690; 84484; 85025; 93005; 96365; 96374; 96375; 99284; A4222; C9113; S0028; G0378; J2270; J2405

== ENCOUNTER 2016-11-19 08:58 | Day surgery (SDC) | payer BC ==
[2016-11-19] MEDS ORDERED: D5 LR 1000 ML 1,000 ML IV ONE (09:07)
[2016-11-19] MEDS ORDERED: DIPRIVAN VIAL 20 ML ONE ×2 (10:00→10:15)
[2016-11-19 10:44] VITALS: BP 120/62
== END 2016-11-19 10:47 | disposition home or self-care (01) ==
LOC: SURG1 08:58
PROVIDERS: ATTEND Internal Medicine Gastroenterology
PROC: 0DJ08ZZ Inspection of Upper Intestinal Tract, Via Natural or Artificial Opening Endoscopic (ICD-10-PCS; principal; 2016-11-19 12:00)
PROC: 0DB88ZX Excision of Small Intestine, Via Natural or Artificial Opening Endoscopic, Diagnostic (ICD-10-PCS; principal; 2016-11-19 12:00)
PROC: 0DB68ZX Excision of Stomach, Via Natural or Artificial Opening Endoscopic, Diagnostic (ICD-10-PCS; principal; 2016-11-19 12:00)
DX: R11.0 Nausea (principal); R10.13 Epigastric pain; K21.9 Gastro-esophageal reflux disease without esophagitis; K44.9 Diaphragmatic hernia without obstruction or gangrene; K20.8 Other esophagitis; K29.60 Other gastritis without bleeding
CPT/HCPCS: A4217; J3490; J7120

== ENCOUNTER 2017-01-14 15:55 | Emergency (ER) | payer BC ==
[2017-01-14 16:06] VITALS: BP 155/91; BMI 39.3
--- NOTE | 2017-01-14 16:36 | DR.GENAD ---
HPI - PCP Primary Care Physician: Jerson - HPI Comment HPI Comment: PATIENT HAVE CHEST PAIN BETWEEN SCAPULAR GOING TO SUBSTERNAL AREA THAT STARTED TODAY. TOOK HER MED TODAY. NO SOB, WEAKNESS OR DIAPHORESIS. NAUSEATED. - Complaint/Symptoms Chief Complaint Doctors Comments: CHEST PAIN. HISTORY HIATAL HERNIA. Chief Complaint:: "I have a hiatal hernia and I have just been getting a lot of pain in my shoulder, back and under my chest. I just need some relief from the pain. This is the first time I have had an attack in a long time." - Nurses notes reviewed Nurses Notes Review: Yes - Source History Provided: Patient - Mode of Arrival Mode of Arrival: Ambulatory - Timing Onset of Chief Complaint: 01/14/17 Came on: Suddenly - Duration Duration: Constant Duration: Hours - Severity Severity: Moderate PMH - PMH Past Medical History: Yes Past Medical History: GERD, Hypertension, Hypothyroidism Past Surgical History: Yes Surgical History: Cholecystectomy, Ortho Surgery Past Surgical History Comment: Right knee - Family History History of Family Medical Conditions: Yes Family Medical History: Diabetes Mellitus, Hypertension - Social History Does patient currently use any type of tobacco product: No Have you used tobacco products in the last 12 months: No Type of Tobacco Use: None Does any household member use tobacco: No Alcohol Use: None Do you use any recreational Drugs:: No Lives With: Alone Lives Where: Home - infectious screening In the last 2 months have you had wt loss of >10#?: NO Have you had fever, night sweats or hemotysis?: No Have you traveled outside the country in the last 6 months?: No Isolation: Standard ROS - Review of Systems Constitutional: No Symptoms Reported Eyes: No Symptoms Reported ENTM: No Symptoms Reported Respiratoy: No Symptoms Reported Cardiovascular: Chest Pain Gastrointestinal/Abdominal: Nausea Genitourinary: No Symptoms Reported. negative: Dysuria, Frequency, Hematuria Neurological: No Symptoms Reported Musculoskeletal: No Symptoms Reported Integumentary: No Symptoms Reported Hematologic/Lymphatic: No Symptoms Reported Endocrine: No Symptoms Reported All Other Systems: Reviewed and Negative PE - Vital Signs Vitals: Temperature 97.4 F Pulse Rate 83 Respiratory Rate 18 Blood Pressure [Right Arm] 119/58 Blood Pressure [Left Arm] 172/78 Blood Pressure 155/91 O2 Sat by Pulse Oximetry 100 - General Limitations: No Limitations General Appearance: Alert - Head Head Exam: Normal Inspection - Eyes Eye exam: Normal Appearance - ENT ENT Exam: Normal External Ear Exam External Ear Exam: Normal External Inspection TM/Canal Exam: Bilateral Normal Nose Exam: Normal Nose Exam Mouth Exam: Normal Inspection Throat Exam: Normal Inspection - Neck Neck Exam: Trachea Midline - Chest Chest Inspection: Symmetric Chest Wall Rise - Respiratory Respiratory Exam: Normal Lung Sounds Bilat Respiratory Exam: Bilateral Clear to Auscultation - Cardiovascular Cardiovascular Exam: Regular Rate, Normal Rhythm, Normal Heart Sounds - Abdominal Exam Abdominal Exam: Normal Bowel Sounds, Soft. negative: Tenderness - Extremities Extremities Exam: Normal Inspection - Back Back Exam: Normal Inspection - Neurologic Neurological Exam: Alert, Oriented X3 - Psychiatric Psychiatric Exam: Anxious - Skin Skin Exam: Normal Color MDM - Additional Information Additional Information Obtained From: Family - Differential Diagnosis Differential Diagnosis: CHEST PAIN, VT, HIATAL HERNIA, PUD Course - Treatment Treatment: SEE ORDERS - Education/Counseling Education/Counseling: Patient, Family, Education Educated On: Treatment, Diagnosis, Needs for Follow Up ROR - Labs Reviewed Laboratory Results Reviewed?: Yes Result Diagrams: 01/14/17 17:03 01/14/17 17:03 Laboratory: WBC 5.7 X10^3/uL (3.6-10.0) 01/14/17 17:03 RBC 4.32 X10^6/uL (3.5-5.4) 01/14/17 17:03 Hgb 12.8 g/dL (12.0-16.0) 01/14/17 17:03 Hct 37.3 % (36.0-47.0) 01/14/17 17:03 MCV 86.4 fL (80.0-100.0) 01/14/17 17:03 MCH 29.7 pg (27.0-34.0) 01/14/17 17:03 MCHC 34.4 g/dL (33.0-35.0) 01/14/17 17:03 RDW 12.9 % (11.6-16.5) 01/14/17 17:03 Plt Count 277 X10^3/uL (150.0-450.0) 01/14/17 17:03 MPV 7.6 fL (7.4-11.0) 01/14/17 17:03 Neut % 67.4 % (42.0-75.0) 01/14/17 17:03 Lymph % 23.8 % (21.0-51.0) 01/14/17 17:03 [place] % 6.8 % (0.0-13.0) 01/14/17 17:03 Eos % 1.4 % (0.9-2.9) 01/14/17 17:03 Baso % 0.6 % (0.2-1.0) 01/14/17 17:03 Neut # 3.9 x10^3/uL (2.2-4.8) 01/14/17 17:03 Lymph # 1.4 X10^3/uL (1.3-2.9) 01/14/17 17:03 [place] # 0.4 x10^3/uL (0.3-0.8) 01/14/17 17:03 Eos # 0.1 x10^3/uL (0.0-0.2) 01/14/17 17:03 Baso # 0.0 X10^3/uL (0.0-0.1) 01/14/17 17:03 Absolute Nucleated RBC 0.0 /100WBC 01/14/17 17:03 Sodium 139 mmol/L (136-145) 01/14/17 17:03 Corrected Sodium TNP 01/14/17 17:03 Potassium 4.2 mmol/L (3.5-5.1) 01/14/17 17:03 Chloride 104 mmol/L (98-107) 01/14/17 17:03 Carbon Dioxide 27.3 mmol/L (21-32) 01/14/17 17:03 BUN 21 mg/dL (7-18) H 01/14/17 17:03 Creatinine 1.16 mg/dL (0.55-1.02) H 01/14/17 17:03 Est GFR (MDRD) Af Amer > 60 (>60) 01/14/17 17:03 Est GFR (MDRD) Non-Af 51 (>60) L 01/14/17 17:03 Glucose 93 mg/dL (65-99) 01/14/17 17:03 Calcium 9.4 mg/dL (8.5-10.1) 01/14/17 17:03 Corrected Calcium TNP 01/14/17 17:03 Total Bilirubin 0.60 mg/dL (0.2-1.0) 01/14/17 17:03 AST 28 Units/L (15-37) 01/14/17 17:03 ALT 23 Units/L (12-78) 01/14/17 17:03 Alkaline Phosphatase 75 Units/L (46-116) 01/14/17 17:03 Creatine Kinase 75 Units/L (26-192) 01/14/17 17:03 CK-MB (CK-2) < 1.0 ng/mL (0-4.0) 01/14/17 17:03 CK/CKMB % Calc 1.3 % (<4) 01/14/17 17:03 Troponin I < 0.02 ng/mL (0-1.5) 01/14/17 17:03 Total Protein 8.0 g/dL (6.4-8.2) 01/14/17 17:03 Albumin 4.0 g/dL (3.4-5.0) 01/14/17 17:03 Globulin 4.0 g/dL (2.5-4.5) 01/14/17 17:03 Albumin/Globulin Ratio 1.0 Ratio (1.1-2.1) L 01/14/17 17:03 - XRAY XRAY Interpreted by: Radiologist XRAY Findings: REPORT DISCUSS WITH PATIENT. - EKG Rhythm: NSR (EKG NOTED) - Diagnosis Discharge Problem: Hiatal hernia Chest pain Qualifiers: Chest pain type: intercostal pain Qualified Code(s): R07.82 - Intercostal pain Back pain Qualifiers: Back pain location: thoracic back pain Chronicity: acute Back pain laterality: unspecified Qualified Code(s): M54.6 - Pain in thoracic spine - Discharge Plan Disposition: 01 HOME, SELF-CARE Condition: Stable Prescriptions: Gi Cocktail [LEVSIN/Maalox/Lidoc Visc (GI COCKTAIL) *] 30 ml PO QID PRN #240 ml PRN Reason: - Follow ups/Referrals Follow ups/Referrals: NFD,None [Primary Care Provider] - 3 days - Instructions Instructions: Hiatal Hernia, Chest Pain Observation Additional Instructions: RETURN TO ED IF WORSE.
[2017-01-14] MEDS ORDERED: PEPCID 20 MG IV PREMIX* 20 MG/50 ML BAG IV ONE ×2 (16:47→16:55)
[2017-01-14] MEDS ORDERED: LEVSIN/MAALOX/LIDOC VISC PO ONE (16:47)
[2017-01-14 17:11] LABS: BASOPHILS % (AUTO) 0.6 % (0.2-1.0); EOSINOPHILS # (AUTO) 0.1 x10^3/uL (0.0-0.2); EOSINOPHILS % (AUTO) 1.4 % (0.9-2.9); HEMATOCRIT 37.3 % (36.0-47.0); HEMOGLOBIN 12.8 g/dL (12.0-16.0); LYMPHOCYTES # (AUTO) 1.4 X10^3/uL (1.3-2.9); LYMPHOCYTES % (AUTO) 23.8 % (21.0-51.0); MEAN CORPUSCULAR HEMOGLOBIN 29.7 pg (27.0-34.0); MEAN CORPUSCULAR HGB CONC 34.4 g/dL (33.0-35.0); MEAN CORPUSCULAR VOLUME 86.4 fL (80.0-100.0); MEAN PLATELET VOLUME 7.6 fL (7.4-11.0); MONOCYTES # (AUTO) 0.4 x10^3/uL (0.3-0.8); MONOCYTES % (AUTO) 6.8 % (0.0-13.0); NEUTROPHILS # (AUTO) 3.9 x10^3/uL (2.2-4.8); NEUTROPHILS % (AUTO) 67.4 % (42.0-75.0); PLATELET COUNT 277 X10^3/uL (150.0-450.0); RED BLOOD COUNT 4.32 X10^6/uL (3.5-5.4); RED CELL DISTRIBUTION WIDTH 12.9 % (11.6-16.5); WHITE BLOOD COUNT 5.7 X10^3/uL (3.6-10.0)
[2017-01-14] MEDS ORDERED: LEVSIN/MAALOX/LIDOC VISC ONE (17:11)
[2017-01-14] MEDS ORDERED: MORPHINE SULFATE INJ 2 MG INJ ONE ×2 (17:22→17:23)
[2017-01-14] MEDS ORDERED: MORPHINE SULFATE INJ 2 MG INJ IVP ONE (17:25)
[2017-01-14 17:31] LABS: BLOOD UREA NITROGEN 21 mg/dL (7-18); CALCIUM 9.4 mg/dL (8.5-10.1); CARBON DIOXIDE 27.3 mmol/L (21-32); CHLORIDE 104 mmol/L (98-107); CREATININE 1.16 mg/dL (0.55-1.02); SODIUM 139 mmol/L (136-145); TROPONIN I < 0.02 ng/mL (0-1.5); eGFR BLACK RACES > 60 (>60); eGFR NON BLACK RACES 51 (>60)
[2017-01-14 17:36] LABS: ALANINE AMINOTRANSFERASE 23 Units/L (12-78); ALKALINE PHOSPHATASE 75 Units/L (46-116); ASPARTATE AMINO TRANSFERASE 28 Units/L (15-37); CKMB % 1.3 % (<4); CREATINE KINASE 75 Units/L (26-192); CREATINE KINASE MB < 1.0 ng/mL (0-4.0)
--- NOTE | 2017-01-14 18:00 | RAD ---
HISTORY: Chest pain Study: Single view of the chest Comparison: October 07, 2016 Findings: The patient is rotated. The cardiac silhouette is relatively stable in appearance. Low lung volumes are again demonstrated bilaterally as well. A large hiatal hernia is also again noted. IMPRESSION: 1. Low lung volumes bilaterally similar to prior study. 2. Large hiatal hernia. Reported By:
[2017-01-14] MEDS ORDERED: PERCOCET TAB 5/325 MG PO ONE (18:28)
[2017-01-14] MEDS ORDERED: PERCOCET TAB 5/325 MG ONE (18:36)
== END 2017-01-14 18:44 | disposition home or self-care (01) ==
LOC: ER 16:08
DX: K44.9 Diaphragmatic hernia without obstruction or gangrene (principal); R07.82 Intercostal pain; M54.6 Pain in thoracic spine
CPT/HCPCS: 36415; 71010; 80053; 82550; 82553; 84484; 85025; 93005; 93010; 96365; 96374; 96375; 99283; A4222; S0028; J2270

== ENCOUNTER 2017-08-06 10:17 | Emergency (ER) | payer BC ==
[2017-08-06 10:22] VITALS: BMI 42.3
[2017-08-06] MEDS ORDERED: ZOFRAN INJ 4 MG VIAL IVP ONE (10:26)
[2017-08-06] MEDS ORDERED: ZOFRAN INJ 4 MG VIAL ONE (10:27)
[2017-08-06] MEDS ORDERED: PROTONIX INJ 40 MG VIAL IVP ONE (10:32)
--- NOTE | 2017-08-06 10:32 | DR.CP ---
HPI - Time Seen Time seen: 10:25 - PCP Primary Care Physician: miller - Complaint Chief Complaint Doctor Comments: Patient states that she had epigastric pain at sternum this morning radiating to back and left shoulder. She denies a history of cardipulmonary disease. She admits to having a large hiatal hernia that causes chest pain due to its size. She has been evaluated for surgery but deferred to not enough weight reduction. Chief Complaint:: Patient c/o chest pain that radiates to left shoulder and back. Patient states the pain started 30 minutes after eating breakfast. States she ate eggs and grits. Self Treatment fo Chief Complaint: Bentyl po - Source History Provided: Patient - Mode of Arrival Mode of Arrival: Ambulatory - Timing Onset of Chief Complaint: 08/06/17 PMH - PMH Past Medical History: Yes Past Medical History: GERD, Hypertension, Hypothyroidism Past Medical History Comment: hital hernia Past Surgical History: Yes Surgical History: Cholecystectomy, Ortho Surgery - Family History History of Family Medical Conditions: Yes Family Medical History: Diabetes Mellitus, Hypertension - Social History Does patient currently use any type of tobacco product: No Have you used tobacco products in the last 12 months: No Type of Tobacco Use: None Does any household member use tobacco: No Alcohol Use: None Do you use any recreational Drugs:: No Lives Where: Home - infectious screening In the last 2 months have you had wt loss of >10#?: NO Have you had fever, night sweats or hemotysis?: No Have you traveled outside the country in the last 6 months?: No Isolation: Standard ROS - Review of Systems Eyes: No Symptoms Reported ENTM: No Symptoms Reported Respiratoy: No Symptoms Reported Cardiovascular: No Symptoms Reported Gastrointestinal/Abdominal: No Symptoms Reported Genitourinary: No Symptoms Reported Neurological: No Symptoms Reported Musculoskeletal: No Symptoms Reported Integumentary: No Symptoms Reported Hematologic/Lymphatic: No Symptoms Reported Endocrine: No Symptoms Reported Psychiatric: No Symptoms Reported All Other Systems: Reviewed and Negative PE - Vitals Vitals: Temperature 98.1 F Pulse Rate [Apical] 67 Pulse Rate 90 Respiratory Rate 18 Blood Pressure [Right Arm] 111/56 Blood Pressure [Left Arm] 172/78 Blood Pressure 130/60 O2 Sat by Pulse Oximetry 100 - General Limitations: No Limitations General Appearance: Alert - Head Head Exam: Normal Inspection, Atraumatic - Eyes Eye exam: Normal Appearance, PERRL, EOMI - ENT ENT Exam: Normal Exam - Chest Chest Inspection: Normal Inspection, Symmetric Chest Wall Rise - Respiratory Respiratory Exam: Normal Lung Sounds Bilat Respiratory Exam: Bilateral Clear to Auscultation - Cardiovascular Cardiovascular Exam: Regular Rate, Normal Rhythm Pulse: Normal, Radial Edema: Normal - Abdominal Exam Abdominal Exam: Normal Inspection, Normal Bowel Sounds, Soft Abdominal Tenderness: Epigastrium - Extremities Extremities Exam: Normal Inspection, Full ROM - Back Back Exam: Normal Inspection, Full ROM - Neurologic Neurological Exam: Alert, Oriented X3, CN II-XII Intact - Psychiatric Psychiatric Exam: Normal Affect, Normal Mood - Skin Skin Exam: Warm, Dry, Intact Course - Reevaluation 1st: Improved ROR - Labs Reviewed Result Diagrams: 08/06/17 10:29 08/06/17 10:29 Laboratory: WBC 4.0 X10^3/uL (3.6-10.0) 08/06/17 10:29 RBC 4.61 X10^6/uL (3.5-5.4) 08/06/17 10:29 Hgb 14.1 g/dL (12.0-16.0) 08/06/17 10:29 Hct 40.8 % (36.0-47.0) 08/06/17 10:29 MCV 88.5 fL (80.0-100.0) 08/06/17 10:29 MCH 30.5 pg (27.0-34.0) 08/06/17 10:29 MCHC 34.5 g/dL (33.0-35.0) 08/06/17 10:29 RDW 13.5 % (11.6-16.5) 08/06/17 10:29 Plt Count 335 X10^3/uL (150.0-450.0) 08/06/17 10:29 MPV 7.1 fL (7.4-11.0) L 08/06/17 10:29 Neut % (Auto) 40.1 % (42.0-75.0) L 08/06/17 10:29 Lymph % (Auto) 43.0 % (21.0-51.0) 08/06/17 10:29 [place] % (Auto) 12.6 % (0.0-13.0) 08/06/17 10:29 Eos % (Auto) 3.4 % (0.9-2.9) H 08/06/17 10:29 Baso % (Auto) 0.9 % (0.2-1.0) 08/06/17 10:29 Neut # (Auto) 1.6 x10^3/uL (2.2-4.8) L 08/06/17 10:29 Lymph # (Auto) 1.7 X10^3/uL (1.3-2.9) 08/06/17 10:29 [place] # (Auto) 0.5 x10^3/uL (0.3-0.8) 08/06/17 10:29 Eos # (Auto) 0.1 x10^3/uL (0.0-0.2) 08/06/17 10:29 Baso # (Auto) 0.0 X10^3/uL (0.0-0.1) 08/06/17 10:29 Absolute Nucleated RBC 0.1 /100WBC 08/06/17 10:29 INR Target Range - 08/06/17 10:29 INR 0.96 (0.8-1.3) 08/06/17 10:29 APTT 27.5 SECONDS (22.9-36.5) 08/06/17 10:29 PTT Comment - 08/06/17 10:29 Sodium 141 mmol/L (136-145) 08/06/17 10:29 Corrected Sodium TNP 08/06/17 10:29 Potassium 4.1 mmol/L (3.5-5.1) 08/06/17 10:29 Chloride 104 mmol/L (98-107) 08/06/17 10:29 Carbon Dioxide 28.4 mmol/L (21-32) 08/06/17 10:29 BUN 22 mg/dL (7-18) H 08/06/17 10:29 Creatinine 1.19 mg/dL (0.55-1.02) H 08/06/17 10:29 Est GFR (MDRD) Af Amer 60 (>60) 08/06/17 10:29 Est GFR (MDRD) Non-Af 49 (>60) L 08/06/17 10:29 Glucose 101 mg/dL (65-99) H 08/06/17 10:29 Calcium 8.8 mg/dL (8.5-10.1) 08/06/17 10:29 Corrected Calcium TNP 08/06/17 10:29 Magnesium 1.9 mg/dL (1.7-2.9) 08/06/17 10:29 Total Bilirubin 0.50 mg/dL (0.2-1.0) 08/06/17 10:29 AST 29 Units/L (15-37) 08/06/17 10:29 ALT 32 Units/L (12-78) 08/06/17 10:29 Alkaline Phosphatase 111 Units/L (46-116) 08/06/17 10:29 Creatine Kinase 108 Units/L (26-192) 08/06/17 10:30 CK-MB (CK-2) 1.3 ng/mL (0-4.0) 08/06/17 10:30 CK/CKMB % Calc 1.2 % (<4) 08/06/17 10:30 Troponin I < 0.02 ng/mL (0-1.5) 08/06/17 10:30 Total Protein 8.5 g/dL (6.4-8.2) H 08/06/17 10:29 Albumin 3.9 g/dL (3.4-5.0) 08/06/17 10:29 Globulin 4.6 g/dL (2.5-4.5) H 08/06/17 10:29 Albumin/Globulin Ratio 0.8 Ratio (1.1-2.1) L 08/06/17 10:29 Amylase 35 Units/L (25-115) 08/06/17 10:29 Lipase 157 Units/L (73-393) 08/06/17 10:29 H. pylori IgG Antibody Negative (NEGATIVE) 08/06/17 10:29 - XRAY XRAY Interpreted by: Radiologist (Chest: Continued normal heart size with essentially clear lunghs and pleural spaces. The retrocardiac left lower lobe is partly observed by a large hiatal hernia.) - Diagnosis Discharge Problem: Epigastric abdominal pain, Hiatal hernia - Discharge Plan Condition: Stable - Follow ups/Referrals Follow ups/Referrals: Kevan Arthur [Primary Care Provider] - 3 days - Instructions
[2017-08-06] MEDS ORDERED: PROTONIX INJ 40 MG VIAL ONE (10:33)
[2017-08-06 10:40] LABS: BASOPHILS % (AUTO) 0.9 % (0.2-1.0); EOSINOPHILS # (AUTO) 0.1 x10^3/uL (0.0-0.2); EOSINOPHILS % (AUTO) 3.4 % (0.9-2.9); HEMATOCRIT 40.8 % (36.0-47.0); HEMOGLOBIN 14.1 g/dL (12.0-16.0); LYMPHOCYTES # (AUTO) 1.7 X10^3/uL (1.3-2.9); MEAN CORPUSCULAR HEMOGLOBIN 30.5 pg (27.0-34.0); MEAN CORPUSCULAR HGB CONC 34.5 g/dL (33.0-35.0); MEAN CORPUSCULAR VOLUME 88.5 fL (80.0-100.0); MEAN PLATELET VOLUME 7.1 fL (7.4-11.0); MONOCYTES # (AUTO) 0.5 x10^3/uL (0.3-0.8); MONOCYTES % (AUTO) 12.6 % (0.0-13.0); NEUTROPHILS # (AUTO) 1.6 x10^3/uL (2.2-4.8); NEUTROPHILS % (AUTO) 40.1 % (42.0-75.0); PLATELET COUNT 335 X10^3/uL (150.0-450.0); RED BLOOD COUNT 4.61 X10^6/uL (3.5-5.4); RED CELL DISTRIBUTION WIDTH 13.5 % (11.6-16.5)
--- NOTE | 2017-08-06 10:44 | RAD ---
Examination: Portable AP chest History: Chest pain left shoulder and back Comparison 01/14/2017 Findings: Continued normal heart size with essentially clear lungs and pleural spaces. The retrocardi ac left lower lobe is partly obscured by a large hiatal hernia. Impression: No acute process identified. See above. Re-demonstration of large intrathoracic hiatal he rnia. Reported By:
[2017-08-06 10:52] LABS: AMYLASE 35 Units/L (25-115); LIPASE 157 Units/L (73-393)
[2017-08-06 10:55] LABS: ALANINE AMINOTRANSFERASE 32 Units/L (12-78); ALBUMIN 3.9 g/dL (3.4-5.0); ALKALINE PHOSPHATASE 111 Units/L (46-116); ASPARTATE AMINO TRANSFERASE 29 Units/L (15-37); BLOOD UREA NITROGEN 22 mg/dL (7-18); CALCIUM 8.8 mg/dL (8.5-10.1); CARBON DIOXIDE 28.4 mmol/L (21-32); CHLORIDE 104 mmol/L (98-107); CREATININE 1.19 mg/dL (0.55-1.02); MAGNESIUM 1.9 mg/dL (1.7-2.9); SODIUM 141 mmol/L (136-145); TOTAL PROTEIN 8.5 g/dL (6.4-8.2); eGFR BLACK RACES 60 (>60); eGFR NON BLACK RACES 49 (>60)
[2017-08-06 11:09] LABS: CKMB % 1.2 % (<4); CREATINE KINASE 108 Units/L (26-192); CREATINE KINASE MB 1.3 ng/mL (0-4.0); TROPONIN I < 0.02 ng/mL (0-1.5)
[2017-08-06 11:27] VITALS: BP 111/56
== END 2017-08-06 11:47 | disposition home or self-care (01) ==
LOC: ER 10:17
DX: R10.13 Epigastric pain (principal); K44.9 Diaphragmatic hernia without obstruction or gangrene
CPT/HCPCS: 36415; 71045; 80053; 82150; 82550; 82553; 83690; 83735; 84484; 85025; 85610; 85730; 86677; 93005; 96365; 96374; 96375; 99283; 99284; A4222; C9113; J2405

== ENCOUNTER 2019-07-22 13:36 | Observation (INO) ==
[2019-07-22 13:51] VITALS: BMI 40.4
--- NOTE | 2019-07-22 13:59 | DR.NAUSEAF ---
HPI - Time Seen Time seen: 14:00 - Primary Care Physician Primary Care Physician: Jerson - HPI Comment HPI Comment: Patient with Hx of Gerd, hiatal hernia with surgery and recently placed on Prilosec by DR. Arthur for her reflux. Patient states after eating last night she started vomiting and hurting in her back which got better by 0400 today. Then she had a sndwich this am and symptoms returned with vomiting. She continues to vomit after anytime she eats or drinks. - Complaints Chief Complaint:: "Yesterday I tried to eat and I threw up my food. Ever since then I immediatly throw up whenever I eat or drink anything. I am having new pain in my back as well now starting with me throwing up yesterday. I keep throwing up froth." - Reviewed Nurses Notes Reviewed: Yes - Source History Provided: Patient - Mode of Arrival Mode of Arrival: Ambulatory - Timing Onset of Chief Complaint: 07/21/19 - Context Onset: Spontaneous Recent: None - Quality Quality: Bilious - Associated Signs and Symptoms Abdominal Pain Quality: Aching Symptoms: denies: Abdominal Pain (pain is in backthoracic area) PMH - PMH Past Medical History: Yes Past Medical History: GERD, Hypertension, Hypothyroidism Past Surgical History: Yes Surgical History: Cholecystectomy, Ortho Surgery, Other Past Surgical History Comment: Gastric sleeve, Hernia repair - Family History History of Family Medical Conditions: Yes Family Medical History: Diabetes Mellitus, Cancer, [place], Heart Failure, Hypertension - Social History Does patient currently use any type of tobacco product: No Have you used tobacco products in the last 12 months: No Type of Tobacco Use: None Does any household member use tobacco: No Alcohol Use: None Do you use any recreational Drugs:: No Lives With: Alone Lives Where: Home - infectious screening In the last 2 months have you had wt loss of >10#?: NO Have you had fever, night sweats or hemotysis?: No Have you traveled outside the country in the last 6 months?: No Isolation: Standard ROS - Review of Systems Constitutional: No Symptoms Reported Eyes: No Symptoms Reported ENTM: No Symptoms Reported Respiratoy: No Symptoms Reported Cardiovascular: No Symptoms Reported Gastrointestinal/Abdominal: Nausea, Vomiting Genitourinary: No Symptoms Reported Neurological: No Symptoms Reported Musculoskeletal: No Symptoms Reported, Back Pain Integumentary: No Symptoms Reported Hematologic/Lymphatic: No Symptoms Reported Endocrine: No Symptoms Reported Psychiatric: No Symptoms Reported All Other Systems: Reviewed and Negative PE - General Limitations: No Limitations General Appearance: Alert - Head Head Exam: Normal Inspection - Eyes Eye exam: Normal Appearance, EOMI - ENT ENT Exam: Normal Exam - Neck Neck Exam: Normal Inspection, Full ROM, Trachea Midline - Chest Chest Inspection: Normal Inspection - Respiratory Respiratory Exam: Normal Lung Sounds Bilat Respiratory Exam: Bilateral Clear to Auscultation - Cardiovascular Cardiovascular Exam: Regular Rate - Abdominal Exam Abdominal Exam: Normal Inspection, Normal Bowel Sounds, Soft Abdominal Tenderness: Epigastrium - Rectal Rectal Exam: Deferred - External Exam: Female: Deferred : Speculum Exam (Female): Deferred : Bimanual Exam (female): Deferred - Extremities Extremities Exam: Normal Inspection, Full ROM - Back Back Exam: Normal Inspection, Full ROM - Neurologic Neurological Exam: Alert, Oriented X3, CN II-XII Intact - Psychiatric Psychiatric Exam: Normal Mood - Skin Skin Exam: Intact, Normal Color - Vital Signs Vitals: Temperature 98.3 F Pulse Rate 83 Respiratory Rate 20 Blood Pressure [Right Arm] 111/56 Blood Pressure [Left Arm] 172/78 Blood Pressure 165/84 O2 Sat by Pulse Oximetry 97 Course - Treatment Treatment: 1515: Oral challenge given after zofran. - Consultation Called: 15:34 Call Returned: 15:34 Consultation Comments: case discussed with DR. Arthur refer to observation, IVF and zofran ROR - Labs Reviewed Result Diagrams: 07/22/19 14:30 07/22/19 14:30 - XRAY XRAY Interpreted by: Radiologist - Labs Reviewed Laboratory: WBC 6.2 X10^3/uL (3.6-10.0) 07/22/19 14:30 RBC 4.38 X10^6/uL (3.5-5.4) 07/22/19 14:30 Hgb 13.6 g/dL (12.0-16.0) 07/22/19 14:30 Hct 39.9 % (36.0-47.0) 07/22/19 14:30 MCV 91.1 fL (80.0-100.0) 07/22/19 14:30 MCH 31.0 pg (27.0-34.0) 07/22/19 14:30 MCHC 34.0 g/dL (33.0-35.0) 07/22/19 14:30 RDW 13.0 % (11.6-16.5) 07/22/19 14:30 Plt Count 317 X10^3/uL (150.0-450.0) 07/22/19 14:30 MPV 6.5 fL (7.4-11.0) L 07/22/19 14:30 Neut % (Auto) 56.4 % (42.0-75.0) 07/22/19 14:30 Lymph % (Auto) 32.8 % (21.0-51.0) 07/22/19 14:30 Mclennan % (Auto) 8.0 % (0.0-13.0) 07/22/19 14:30 Eos % (Auto) 2.2 % (0.9-2.9) 07/22/19 14:30 Baso % (Auto) 0.6 % (0.2-1.0) 07/22/19 14:30 Neut # (Auto) 3.5 x10^3/uL (2.2-4.8) 07/22/19 14:30 Lymph # (Auto) 2.0 X10^3/uL (1.3-2.9) 07/22/19 14:30 Mclennan # (Auto) 0.5 x10^3/uL (0.3-0.8) 07/22/19 14:30 Eos # (Auto) 0.1 x10^3/uL (0.0-0.2) 07/22/19 14:30 Baso # (Auto) 0.0 X10^3/uL (0.0-0.1) 07/22/19 14:30 Absolute Nucleated RBC 0.0 /100WBC 07/22/19 14:30 Sodium 142 mmol/L (136-145) 07/22/19 14:30 Corrected Sodium TNP 07/22/19 14:30 Potassium 4.8 mmol/L (3.5-5.1) 07/22/19 14:30 Chloride 105 mmol/L (98-107) 07/22/19 14:30 Carbon Dioxide 31.0 mmol/L (21-32) 07/22/19 14:30 BUN 14 mg/dL (7-18) 07/22/19 14:30 Creatinine 1.07 mg/dL (0.55-1.02) H 07/22/19 14:30 Est GFR (MDRD) Af Amer > 60 (>60) 07/22/19 14:30 Est GFR (MDRD) Non-Af 55 (>60) L 07/22/19 14:30 Glucose 86 mg/dL (65-99) 07/22/19 14:30 Calcium 9.3 mg/dL (8.5-10.1) 07/22/19 14:30 Corrected Calcium TNP 07/22/19 14:30 Total Bilirubin 0.70 mg/dL (0.2-1.0) 07/22/19 14:30 AST 25 Units/L (15-37) 07/22/19 14:30 ALT 24 Units/L (12-78) 07/22/19 14:30 Alkaline Phosphatase 75 Units/L (46-116) 07/22/19 14:30 Total Protein 8.1 g/dL (6.4-8.2) 07/22/19 14:30 Albumin 3.7 g/dL (3.4-5.0) 07/22/19 14:30 Globulin 4.4 g/dL (2.5-4.5) 07/22/19 14:30 Albumin/Globulin Ratio 0.8 Ratio (1.1-2.1) L 07/22/19 14:30 Lipase 159 Units/L (73-393) 07/22/19 14:30 - XRAY Xray Findings: AAS: Moderate hiatal hernia. No ibstruction pattern (CHRIS HESTER) Opioid - Opioid Risk Tool Total: 0 Total Score Risk Category: Low Risk - Diagnosis Discharge Problem: Vomiting Qualifiers: Vomiting type: bilious vomiting Nausea presence: with nausea Qualified Code(s): R11.14 - Bilious vomiting - Discharge Plan Condition: Stable - Follow ups/Referrals Follow ups/Referrals: Kevan Arthur [Primary Care Provider] - 3 days - Instructions
[2019-07-22] MEDS ORDERED: ZOFRAN TAB 4 MG PO ONE (14:17)
[2019-07-22] MEDS ORDERED: ZOFRAN TAB 4 MG ONE (14:22)
[2019-07-22 14:35] LABS: BASOPHILS % (AUTO) 0.6 % (0.2-1.0); EOSINOPHILS # (AUTO) 0.1 x10^3/uL (0.0-0.2); EOSINOPHILS % (AUTO) 2.2 % (0.9-2.9); HEMATOCRIT 39.9 % (36.0-47.0); HEMOGLOBIN 13.6 g/dL (12.0-16.0); LYMPHOCYTES % (AUTO) 32.8 % (21.0-51.0); MEAN CORPUSCULAR VOLUME 91.1 fL (80.0-100.0); MEAN PLATELET VOLUME 6.5 fL (7.4-11.0); MONOCYTES # (AUTO) 0.5 x10^3/uL (0.3-0.8); NEUTROPHILS # (AUTO) 3.5 x10^3/uL (2.2-4.8); NEUTROPHILS % (AUTO) 56.4 % (42.0-75.0); PLATELET COUNT 317 X10^3/uL (150.0-450.0); RED BLOOD COUNT 4.38 X10^6/uL (3.5-5.4); WHITE BLOOD COUNT 6.2 X10^3/uL (3.6-10.0)
[2019-07-22 14:47] LABS: ALANINE AMINOTRANSFERASE 24 Units/L (12-78); ALBUMIN 3.7 g/dL (3.4-5.0); ALKALINE PHOSPHATASE 75 Units/L (46-116); ASPARTATE AMINO TRANSFERASE 25 Units/L (15-37); BLOOD UREA NITROGEN 14 mg/dL (7-18); CALCIUM 9.3 mg/dL (8.5-10.1); CHLORIDE 105 mmol/L (98-107); CREATININE 1.07 mg/dL (0.55-1.02); LIPASE 159 Units/L (73-393); SODIUM 142 mmol/L (136-145); TOTAL PROTEIN 8.1 g/dL (6.4-8.2); eGFR NON BLACK RACES 55 (>60)
--- NOTE | 2019-07-22 15:13 | RAD ---
HISTORY:Vomiting, epigastric pain, gastric sleeve procedureStudy: Acute abdominal seriesComparison:NoneFindings:There is a moderate-sized hiatal hernia. The lungs are clear without consolidation, effusion or pneumothorax. The cardiac and mediastinal contours are within normal limits.Flat plate and upright evaluation of the abdomen demonstrates a nonobstructive bowel gas pattern . Cholecystectomy clips are noted. No gross free intraperitoneal air. No pathological soft tissue mass or calcification can be observed. The bony structures are grossly intact.IMPRESSION:1. Moderate-sized hiatal hernia.2. Nonobstructive bowel gas pattern.Electronically signed by: YVONNE SALGADO (Jul 22, 2019 15:11:50)
[2019-07-22] MEDS ORDERED: TORADOL 60 MG VIAL ONE (15:23)
[2019-07-22] MEDS: TORADOL 60 MG VIAL IM ONE ×2 (15:27→15:30)
[2019-07-22] MEDS ORDERED: ZOFRAN INJ 4 MG VIAL IVP ONE (15:50)
[2019-07-22] MEDS ORDERED: D5 NS 1000 ML 1,000 ML IV ONE (16:09)
[2019-07-22] MEDS ORDERED: ZOFRAN INJ 4 MG VIAL ONE (16:09)
[2019-07-22] MEDS: D5 NS 1000 ML 1,000 ML IV SCH (16:17)
[2019-07-22] MEDS ORDERED: XANAX PO PRN (18:15)
[2019-07-22 20:40] LABS: BILIRUBIN,URINE 1+ (NEGATIVE); BLOOD/HEMOGLOBIN,URINE NEGATIVE (NEGATIVE); GLUCOSE, URINE NEGATIVE (NEGATIVE); KETONES,URINE NEGATIVE (NEGATIVE); LEUKOCYTE ESTERASE ,URINE 2+ (NEGATIVE); NITRITES,URINE NEGATIVE (NEGATIVE); PROTEIN,URINE 1+ (NEGATIVE); UROBILINOGEN,URINE 1+ (NORMAL)
[2019-07-22 20:47] LABS: APPEARANCE,URINE CLEAR (CLEAR); COLOR,URINE DARK YELLOW (YELLOW)
[2019-07-22 20:48] LABS: BACTERIA,URINE TRACE /HPF (NEGATIVE); MUCUS,URINE MODERATE /HPF (NEGATIVE); RBC,URINE 0-2 /HPF (0-3); SQUAMOUS EPITHELIAL CELL,UR MODERATE /HPF (NEGATIVE)
[2019-07-22] MEDS: TOPROL XL PO SCH (20:50)
[2019-07-22] MEDS: RESTORIL CAP 30 MG PO SCH (20:50)
[2019-07-23] MEDS: D5 NS 1000 ML 1,000 ML IV SCH ×2 (04:47→18:14)
[2019-07-23] MEDS: SYNTHROID 150 mcg TAB PO SCH ×2 (05:57→15:56)
[2019-07-23 06:05] LABS: EOSINOPHILS # (AUTO) 0.2 x10^3/uL (0.0-0.2); EOSINOPHILS % (AUTO) 4.3 % (0.9-2.9); HEMATOCRIT 34.4 % (36.0-47.0); HEMOGLOBIN 11.8 g/dL (12.0-16.0); LYMPHOCYTES # (AUTO) 2.3 X10^3/uL (1.3-2.9); MEAN CORPUSCULAR HEMOGLOBIN 31.6 pg (27.0-34.0); MEAN CORPUSCULAR HGB CONC 34.2 g/dL (33.0-35.0); MEAN CORPUSCULAR VOLUME 92.4 fL (80.0-100.0); MEAN PLATELET VOLUME 7.2 fL (7.4-11.0); MONOCYTES # (AUTO) 0.5 x10^3/uL (0.3-0.8); MONOCYTES % (AUTO) 11.2 % (0.0-13.0); NEUTROPHILS # (AUTO) 1.1 x10^3/uL (2.2-4.8); NEUTROPHILS % (AUTO) 26.5 % (42.0-75.0); PLATELET COUNT 239 X10^3/uL (150.0-450.0); RED BLOOD COUNT 3.72 X10^6/uL (3.5-5.4); RED CELL DISTRIBUTION WIDTH 12.8 % (11.6-16.5)
[2019-07-23 06:18] LABS: ALANINE AMINOTRANSFERASE 18 Units/L (12-78); ALBUMIN 2.9 g/dL (3.4-5.0); ALKALINE PHOSPHATASE 53 Units/L (46-116); ASPARTATE AMINO TRANSFERASE 18 Units/L (15-37); BLOOD UREA NITROGEN 15 mg/dL (7-18); CALCIUM 8.3 mg/dL (8.5-10.1); CARBON DIOXIDE 27.9 mmol/L (21-32); CHLORIDE 107 mmol/L (98-107); COR CA(FOR HYPOALB) 9.2 mg/dL (8.5-10.1); CREATININE 0.98 mg/dL (0.55-1.02); SODIUM 141 mmol/L (136-145); TOTAL PROTEIN 6.3 g/dL (6.4-8.2); eGFR NON BLACK RACES > 60 (>60)
[2019-07-23] MEDS: ROCEPHIN VIAL 1 GRAM 1 G in NS 100 ML IV + SPIKE MINIBAG* 100 ML IV SCH (11:26)
[2019-07-23] MEDS ORDERED: COLACE CAP 100 MG PO PRN (19:58)
[2019-07-23] MEDS: TOPROL XL PO SCH (20:12)
[2019-07-23] MEDS: RESTORIL CAP 30 MG PO SCH (20:12)
--- NOTE | 2019-07-23 23:16 | DR.H&P ---
H&P - History & Physical for Day of: H&P Date: 07/22/19 - Chief Complaint Chief Complaint: VOMITING, LOWER BACK PAIN - History of Present Illness History of Present Illness: IS A 63 YEAR OLD PATIENT OF OURS WHO PRESENTED TO THE HOSPITAL WITH COMPLAINTS OF NAUSEA, VOMITING, AND LOWER BACK PAIN. SHE REPORTS THAT SYMPTOMS ARE WORSE AFTER EATING OR DRINKING. ON ARRIVAL TO THE ER, VITALS WERE 98.3-83-18-97%-165/84. LABS WERE OBTAINED. ABNORMAL LAB VALUES INCLUDE THE FOLLOWING: CREATININE 1.07, GFR 55. URINALYSIS REVEALED: WBC 10-20, RBC 0-2, LEUKOCYTES 2+, BACTERIA TRACE. A URINE CULTURE WAS SET UP. AN ABDOMEN XRAY WAS OBTAINED AND REVEALED: Moderate-sized hiatal hernia. Nonobstructive bowel gas pattern. SHE WAS GIVEN ZOFRAN AND TORADOL IN THE ER WITHOUT IMPROVEMENT IN SYMPTOMS. SHE WAS ADMITTED FOR FURTHER EVALUATION AND TREATMENT OF INTRACTABLE VOMITING AND A URINARY TRACT INFECTION. WE STARTED D5NS AT 80 ML/HR, ROCEPHIN 1G IV DAILY, AND HOME MEDICATIONS WERE RESUMED. OTHERWISE, WE PLAN TO FOLLOW UP WITH AM LABS AND CONTINUE TO MONITOR. - Past Medical History Past Medical History: GERD, Hypertension, Hypothyroidism Additional Medical History: Frequent UTI's, Hx Bronchitis - Past Surgical History Surgical History: Abdominal Surgery, Cholecystectomy, Joint Replacement Additional Surgical History: Left Knee Arthroscopy - Family History Family Medical History: Diabetes Mellitus, Cancer - Social History Does patient currently use any type of tobacco product: No Have you used tobacco products in the last 12 months: No Type of Tobacco Use: None Does any household member use tobacco: No Alcohol Use: None Drug Use: None - Medications Home Medications: tramadol Allergy (Intermediate, Verified 10/26/16 16:33) NAUSEA CONTINUE taking the following medications alprazolam 0.5 mg PO BID PRN 07/22/19 [History] levothyroxine 150 mcg PO DAILY 07/22/19 [History] metoprolol succinate 25 mg PO HS 07/22/19 [History] temazepam 30 mg PO QHS 07/22/19 [History] - Review of Systems Constitutional: Weakness Eyes: No Symptoms Reported ENT: No Symptoms Reported Respiratory: No Symptoms Reported Cardiovascular: No Symptoms Reported Gastrointestinal: See HPI, Nausea, Vomiting Genitourinary: No Symptoms Reported Musculoskeletal: Back Pain Skin: No Symptoms Reported Neurological: Weakness - Physical Exam Vital Signs: Temperature 98.1 F Pulse Rate [Left Brachial] 61 Pulse Rate 83 Respiratory Rate 18 Blood Pressure [Right Arm] 163/75 Blood Pressure [Left Arm] 124/60 Blood Pressure 165/84 O2 Sat by Pulse Oximetry 96 Oriented: Normal Eyes: Normal Ear: Normal Nose: Normal Throat: Normal Respiratory: Diminished Throughout Cardiovascular: Normal. negative: S3, S4, Murmur : Normal Auscultation: Bowel Sounds: Normal Palpation: Normal Tenderness: Normal Skin: Normal Musculoskeletal: Back:Lumbar Psychiatric: Normal Mood Description: Calm Affect: Normal Speech Pattern: Clear - Assessment/Plan (1) Urinary tract infection Qualifiers: Urinary tract infection type: acute cystitis Hematuria presence: without hematuria Qualified Code(s): N30.00 - Acute cystitis without hematuria Status: Acute Plan: ADMIT, D5NS AT 80 ML/HR, ROCEPHIN 1G IV DAILY, CONTINUE TO MONITOR (2) Vomiting Qualifiers: Vomiting type: bilious vomiting Nausea presence: with nausea Qualified Code(s): R11.14 - Bilious vomiting Status: Acute - Allergies Allergies/Adverse Reactions: Allergies Allergy/AdvReac Type Severity Reaction Status Date / Time tramadol Allergy Intermediate NAUSEA Verified 10/26/16 16:33
[2019-07-24 05:29] LABS: BASOPHILS % (AUTO) 0.8 % (0.2-1.0); EOSINOPHILS # (AUTO) 0.2 x10^3/uL (0.0-0.2); EOSINOPHILS % (AUTO) 4.5 % (0.9-2.9); HEMATOCRIT 34.9 % (36.0-47.0); HEMOGLOBIN 11.8 g/dL (12.0-16.0); LYMPHOCYTES # (AUTO) 2.3 X10^3/uL (1.3-2.9); LYMPHOCYTES % (AUTO) 55.7 % (21.0-51.0); MEAN CORPUSCULAR HEMOGLOBIN 31.6 pg (27.0-34.0); MEAN CORPUSCULAR HGB CONC 33.8 g/dL (33.0-35.0); MEAN CORPUSCULAR VOLUME 93.3 fL (80.0-100.0); MEAN PLATELET VOLUME 7.1 fL (7.4-11.0); MONOCYTES # (AUTO) 0.4 x10^3/uL (0.3-0.8); MONOCYTES % (AUTO) 9.2 % (0.0-13.0); NEUTROPHILS # (AUTO) 1.2 x10^3/uL (2.2-4.8); NEUTROPHILS % (AUTO) 29.8 % (42.0-75.0); PLATELET COUNT 257 X10^3/uL (150.0-450.0); RED BLOOD COUNT 3.74 X10^6/uL (3.5-5.4)
[2019-07-24 05:38] LABS: ALANINE AMINOTRANSFERASE 19 Units/L (12-78); ALBUMIN 2.8 g/dL (3.4-5.0); ALKALINE PHOSPHATASE 52 Units/L (46-116); ASPARTATE AMINO TRANSFERASE 19 Units/L (15-37); BLOOD UREA NITROGEN 10 mg/dL (7-18); CALCIUM 8.2 mg/dL (8.5-10.1); CARBON DIOXIDE 28.6 mmol/L (21-32); CHLORIDE 108 mmol/L (98-107); COR CA(FOR HYPOALB) 9.2 mg/dL (8.5-10.1); CREATININE 0.91 mg/dL (0.55-1.02); SODIUM 142 mmol/L (136-145); TOTAL PROTEIN 6.2 g/dL (6.4-8.2); eGFR NON BLACK RACES > 60 (>60)
[2019-07-24] MEDS: D5 NS 1000 ML 1,000 ML IV SCH (06:44)
[2019-07-24] MEDS: ROCEPHIN VIAL 1 GRAM 1 G in NS 100 ML IV + SPIKE MINIBAG* 100 ML IV SCH (08:12)
[2019-07-24 08:37] VITALS: BP 166/74
[2019-07-24] MEDS: SYNTHROID 150 mcg TAB PO SCH (09:41)
== END 2019-07-24 11:46 | disposition home or self-care (01) ==
LOC: ER 13:45 → MED/SURG 13:45
PROVIDERS: ADMIT Internal Medicine; ATTEND Internal Medicine
DX: K44.9 Diaphragmatic hernia without obstruction or gangrene; I10 Essential (primary) hypertension; M54.5 Low back pain; N30.00 Acute cystitis without hematuria; K21.9 Gastro-esophageal reflux disease without esophagitis; R11.14 Bilious vomiting; Z79.899 Other long term (current) drug therapy; E03.8 Other specified hypothyroidism
CPT/HCPCS: 36415; 74022; 80053; 81001; 83690; 85025; 87086; 96360; 96361; 96365; 96372; 96374; 96375; 99284; A4216; A4222; G0378; J0696; J1885; J2405; J7042; J7050; S0119; S0181